=== PATIENT | male | born 1940 | race Caucasian/White ===

== ENCOUNTER 2016-12-26 09:26 | Inpatient (IN) | payer MEDICARE, OTHER ==
[~2016-12-26] VITALS: Ht 172.7 cm; Wt 94.4 kg
[~2016-12-26 09:26] MED LIST changes: -BACL10TA PO; -GETGO ROLLING W1 MI1; -HYDR-3583 PO; -PERC10TA27 PO
[2016-12-30] MEDS ORDERED: INSULIN HUMAN REGULAR 1,000 UNITS/10 ML VIAL SQ PRN (06:00)
[2016-12-30] MEDS ORDERED: SODIUM CHLORID 0.9% 500 ML IV SCH (06:00)
[2016-12-30] MEDS ORDERED: LACTATED RINGER'S 1000 ML IV SCH (06:00)
[2016-12-30] MEDS ORDERED: SODIUM CHLOR 0.9% 1000 ML INJ 1,000 ML IV SCH (06:00)
[2016-12-30] MEDS ORDERED: VANCOMYCIN HCL 1000 MG ON-CALL/NS 250 ML IV SCH ×2 (06:00)
[2016-12-30] MEDS ORDERED: METOPROLOL TARTRATE 25 MG TAB PO PRN (06:00)
[2016-12-30 06:19] VITALS: BP 168/107; PULSE 84; RESP 20; TEMP 98.1; O2SAT 94
[2016-12-30] MEDS ORDERED: THROMBIN (TOPICAL) 5,000 UNIT VIAL ONE (07:53)
[2016-12-30] MEDS ORDERED: BUPIVACAINE/EPINEPHRINE 0.5% PF 30 ML VIAL ONE (07:53)
[2016-12-30] MEDS ORDERED: VANCOMYCIN HCL 1000 MG VIAL ONE ×2 (07:53→10:56)
[2016-12-30] MEDS ORDERED: GELFOAM SIZE 100 ONE (07:54)
[2016-12-30] MEDS ORDERED: MIDAZOLAM HCL 2 MG/2 ML VIAL ONE (07:59)
[2016-12-30] MEDS ORDERED: HYDROmorphone HCL PF 2 MG/ML VIAL ONE (07:59)
[2016-12-30] MEDS ORDERED: ACETAMINOPHEN 1000 MG/100 ML VIAL IV ONE (07:59)
[2016-12-30] MEDS ORDERED: SODIUM CHLORIDE 0.9% FLUSH 5 ML FLUSH IVF PRN (11:45)
[2016-12-30] MEDS ORDERED: ZOLPIDEM TARTRATE 5 MG TAB PO PRN (11:45)
[2016-12-30] MEDS ORDERED: MAGNESIUM SULFATE INJ 2 GM in SODIUM CHLORIDE 0.9% INJ 100 ML IV PRN (11:45)
[2016-12-30] MEDS ORDERED: CYCLOBENZAPRINE HCL 10 MG TAB PO PRN (11:45)
[2016-12-30] MEDS ORDERED: ONDANSETRON HCL 4 MG/2 ML VIAL IV PRN (11:45)
[2016-12-30] MEDS ORDERED: POTASSIUM CHLOR 20 MEQ PREMIX 100 ML IV PRN (11:45)
[2016-12-30] MEDS ORDERED: DEXTROSE 50% IN WATER 50 ML VIAL(D50) IV PUSH PRN (11:45)
[2016-12-30] MEDS ORDERED: ACETAMINOPHEN 325 MG TAB PO PRN (11:45)
[2016-12-30] MEDS ORDERED: BISACODYL 10 MG SUPP PR PRN (11:45)
[2016-12-30] MEDS ORDERED: diphenhydrAMINE HCL 50 MG/ML VIAL IV PRN (11:45)
[2016-12-30] MEDS ORDERED: ACETAMINOPHEN/HYDROcodone 325 MG/10 MG TAB PO PRN (11:45)
[2016-12-30] MEDS ORDERED: ALUMINUM/MAGNESIUM/SIMETH 30 ML CUP PO PRN (11:45)
[2016-12-30] MEDS ORDERED: cloNIDine HCL 0.1 MG TAB PO PRN (11:45)
[2016-12-30] MEDS ORDERED: RESP: ALBUTEROL 2.5 MG/3 ML NEB (PRN) NEB (11:45)
[2016-12-30] MEDS ORDERED: CALCIUM GLUCONATE INJ 1 GM in SODIUM CHLORIDE 0.9% INJ 100 ML IV PRN (11:45)
[2016-12-30] MEDS ORDERED: GLUCAGON 1 MG/ML VIAL OTHER PRN (11:45)
[2016-12-30] MEDS ORDERED: PROMETHAZINE INJ 25 MG/ML VIAL IM PRN (11:45)
[2016-12-30] MEDS ORDERED: NALOXONE HCL 0.4 MG/ML AMP IV PRN (11:45)
[2016-12-30] MEDS ORDERED: fentaNYL CITRATE 250 MCG/5 ML AMP ONE (11:52)
--- NOTE | 2016-12-30 11:54 | PD.OP ---
Augustine Muller M.D. Operative Report Date of Surgery: Dec 30, 2016 Preoperative Diagnosis: Intractable low back pain with right L3 radiculopathy; lumbar L3-4 severe degenerative disc disease with facet hypertrophy associated right foraminal and lateral recess stenosis Postoperative Diagnosis: Same Procedure: Lumbar L3-4 transforaminal decompression with interbody fusion; L3-4 pedicle screw fixation; L3-4 interbody cage placement; microsurgical technique Anesthesia: Gen. endotracheal by Carlo Basilio Surgeon: Adarsh Prajapati M.D. Meter Record Clerk(s): Marija Woods Operation and Findings: Following initiation of general endotracheal anesthesia, the patient had a Muller catheter placed along with sequential compression devices. A gram of vancomycin was administered intravenously and he was turned in a prone position on a Giancarlo frame, on a Caden table, and all pressure points adequately padded. The lumbosacral region was then prepped with Chloraprep and sterilely draped with Ioban along the usual sterile draping. A right paraspinal skin incision was then made extending from the L3-4 level after infiltrating the skin with 0.5% Marcaine with epinephrine solution extending down through the fascia. The muscle fibers were split using avascular fatty plane and detached from the underlying facets, transverse process and lateral portion of lamina on the right side and a self-retaining retractor used for exposure. Intraoperative fluoroscopy was also used for level of confirmation along with microscope magnification for further dissection. There was significant facet and ligamentum flavum hypertrophy noted at the L3-4 levels. Right L3-4 facet was resected with a drill bit along with the lamina and there was severe foraminal and lateral recess stenosis from hypertrophied ligamentum flavum and facet which were decompressed. There was disc height collapse along with disc protrusion also leading to the foraminal stenosis. Epidural hemostasis was achieved with bipolar cautery and Gelfoam with thrombin. Subsequently entered into the disc space at the L4-5 level with a #15 blade and rex were used for discectomy. I then placed PEEK cage packed with local autograft bone and more local autograft bone was packed adjacent to the cage in interspace for added interbody fusion. With placement of the cage, I was able to distract the interspace and opened up the foramen further bilaterally. Subsequently in order to facilitate the fusion and provide stabilization, pedicle screw fixation was undertaken using Converse spine screws on entry point at the right L3-4 levels at the junction of the transverse process and facet. Subsequently using AP and lateral fluoroscopy tap and screw placement. The screws were then connected with a joe and locked in place with caps. The construct appeared very secure at this point. The area was then copiously irrigated with Vancomycin solution and powder. The retractors were removed and the bipolar cautery used for hemostasis. The muscle fascia was then approximated using 2-0 Vicryl interrupted stitches and then 3-0 Vicryl subcuticular stitches also placed in interrupted fashion. The final skin closure was completed with Mastisol and Steri-Strips. A sterile dressing was then applied. The patient then turned in supine position, extubated and taken to recovery room. There were no intraoperative complications. All sponge and needle counts were correct at the end of procedure. Estimated blood loss about 100 ml. Adarsh Prajapati MD Dec 30, 2016 11:54
--- NOTE | 2016-12-30 11:56 | RADRPT ---
EXAM DATE/TIME: 12/30/2016 08:17 [facility] COMPARISON: No previous studies available for comparison. INDICATIONS : L3-L4 posterior lumbar fusion. Level localization. MEDICAL HISTORY : None. SURGICAL HISTORY : None. ENCOUNTER: Initial ACUITY: 1 day PAIN SCORE: Non-responsive. LOCATION: Lumbar spine. CONCLUSION: Lateral view of the lower lumbar spine demonstrates temporary probe along the posterior elements at L 3. Ritesh Trivedi MD on December 30, 2016 at 11:55 Board Certified Radiologist. This report was verified electronically.
--- NOTE | 2016-12-30 11:56 | RADRPT ---
EXAM DATE/TIME: 12/30/2016 08:17 [facility] COMPARISON: No previous studies available for comparison. INDICATIONS : Post-op L3-L4 posterior lumbar fusion. MEDICAL HISTORY : None. SURGICAL HISTORY : None. ENCOUNTER: Initial ACUITY: 1 day PAIN SCORE: Non-responsive. LOCATION: Lumbar spine. CONCLUSION: Lateral fluoroscopic images during placement of posterior fusion screws/rods on the right at L3-4. In tervertebral disc device also seen. Ritesh Trivedi MD on December 30, 2016 at 11:54 Board Certified Radiologist. This report was verified electronically.
[2016-12-30] MEDS ORDERED: MORPHINE SULFATE 30 MG/30 ML PCA ONE (12:10)
[2016-12-30] MEDS ORDERED: MORPHINE SULFATE 30 MG/30 ML PCA IV SCH (12:15)
[2016-12-30] MEDS: NS + KCL 20 MEQ INJ 1,000 ML IV SCH ×2 (12:23→21:10)
[2016-12-30 12:26] LABS: AUTOMATED NEUTROPHIL # 4.8 TH/MM3 (1.8-7.7); BASOPHIL % 0.3 % (0.0-2.0); EOSINOPHIL % 0.6 % (0.0-4.0); HEMATOCRIT 38.6 % (39.0-51.0); HEMO FLAGS DIFF FINAL; LYMPH % 26.2 % (9.0-44.0); MEAN CELL VOLUME 96.1 FL (80.0-100.0); MEAN CORPUSCULAR HEMOGLOBIN 31.7 PG (27.0-34.0); MONO % 10.2 % (0.0-8.0); NEUT % 62.7 % (16.0-70.0); PLATELET COUNT 156 TH/MM3 (150-450); RED BLOOD COUNT 4.02 MIL/MM3 (4.50-5.90); RED CELL DISTRIBUTION WIDTH 13.6 % (11.6-17.2); WHITE BLOOD COUNT 7.6 TH/MM3 (4.0-11.0)
[2016-12-30] MEDS ORDERED: DO NOT ADM ANY ANTICOAGULANT DRUGS XX PRN (12:30)
[2016-12-30 12:34] LABS: BICARBONATE 26.4 MEQ/L (21.0-32.0); POTASSIUM 4.4 MEQ/L (3.5-5.1)
[2016-12-30] MEDS ORDERED: ePHEDrine/NS 25 MG/5 ML SYR IV ONE (13:28)
[2016-12-30] MEDS ORDERED: NEOSTIGMINE 3 MG/3 ML SYR IV ONE (13:28)
[2016-12-30] MEDS ORDERED: ONDANSETRON HCL 4 MG/2 ML VIAL IV PUSH ONE (13:28)
[2016-12-30] MEDS ORDERED: PROPOFOL 200 MG/20 ML AMP IV ONE (13:28)
[2016-12-30] MEDS ORDERED: LACTATED RINGER'S 1000 ML INJ 1,000 ML IV ONE (13:28)
[2016-12-30] MEDS ORDERED: PHENYLEPH/NS 1000 MCG/10 ML SYR IV ONE (13:28)
[2016-12-30 13:45] VITALS: BP 110/67; PULSE 89; RESP 18; TEMP 97; O2SAT 93
[2016-12-30] MEDS: PCA - TOTAL MG MORPHINE DELIVERED PER SHIFT SCH ×2 (14:00→22:00)
[2016-12-30] MEDS: GABAPENTIN 400 MG CAP PO SCH ×2 (14:09→17:50)
[2016-12-30] MEDS: MENTHOL LOZENGE SUCK-ON PRN ×2 (14:12→16:10)
[2016-12-30 16:00] VITALS: BP 133/77; PULSE 78; RESP 18; TEMP 97.5; O2SAT 95
[2016-12-30] MEDS: INSULIN NovoLIN REGULAR SUPPLEMENTAL SCALE SQ SCH ×2 (16:10→21:09)
[2016-12-30] MEDS: ACETAMINOPHEN/HYDROcodone 325 MG/10 MG TAB PO PRN (19:52)
[2016-12-30 20:00] VITALS: BP 130/73; PULSE 93; RESP 16; TEMP 99; O2SAT 93
[2016-12-30] MEDS: SODIUM CHLORIDE 0.9% FLUSH 5 ML FLUSH IVF SCH (21:00)
[2016-12-30] MEDS: DOCUSATE SODIUM 100 MG CAP PO SCH (21:08)
[2016-12-30] MEDS: AMITRIPTYLINE HCL 25 MG TAB PO SCH (21:09)
[2016-12-30] MEDS: TAMSULOSIN HCL 0.4 MG CAP PO SCH (21:09)
[2016-12-30] MEDS: ATORVASTATIN 10 MG TAB PO SCH (21:09)
[2016-12-31] VITALS: BP 119/70; PULSE 86; RESP 17; TEMP 99.4; O2SAT 93
[2016-12-31 04:00] VITALS: BP 146/80; PULSE 96; RESP 16; TEMP 100.2; O2SAT 93
[2016-12-31] MEDS: PCA - TOTAL MG MORPHINE DELIVERED PER SHIFT SCH ×2 (06:00→13:31)
[2016-12-31] MEDS: MAGNESIUM HYDROXIDE SUSP 30 ML CUP PO PRN (06:06)
[2016-12-31] MEDS: INSULIN NovoLIN REGULAR SUPPLEMENTAL SCALE SQ SCH ×4 (06:07→21:15)
[2016-12-31] MEDS: MULTIVITAMIN HEMATINIC THERAPEUTIC TAB PO SCH (07:59)
[2016-12-31 08:00] VITALS: BP 138/65; PULSE 90; RESP 18; TEMP 99; O2SAT 91
[2016-12-31] MEDS: ASPIRIN EC 81 MG TABEC PO SCH (08:00)
[2016-12-31] MEDS: CHOLECALCIFEROL (VIT D3) 1000 UNIT TAB PO SCH (08:00)
[2016-12-31] MEDS: GABAPENTIN 400 MG CAP PO SCH ×3 (08:00→18:26)
[2016-12-31] MEDS: LISINOPRIL 5 MG TAB PO SCH (08:00)
[2016-12-31] MEDS: PANTOPRAZOLE SOD 20 MG DELAYED RELEASE TAB PO SCH (08:01)
[2016-12-31] MEDS: SODIUM CHLORIDE 0.9% FLUSH 5 ML FLUSH IVF SCH ×2 (08:01→21:14)
[2016-12-31] MEDS: DOCUSATE SODIUM 100 MG CAP PO SCH ×2 (08:01→21:14)
[2016-12-31] MEDS: NS + KCL 20 MEQ INJ 1,000 ML IV SCH (08:06)
[2016-12-31] MEDS: MAGNESIUM OXIDE 400 MG TAB PO SCH (09:05)
--- NOTE | 2016-12-31 10:00 | HHI.NSPN ---
(Ritesh Orta) History Chief Complaint: Incisional back pain. (Ritesh Orta) Interval History 12/31/16: Pt underwent a L3/L4 TLIF with cage and pedicle screw fixation on 12/30. Complains of incisional back pain, controlled on DERMATOPATHOLOGIST. No radiculopathy or paresthesias in LEs. Muller removed this morning, no urination yet. (Ritesh Orta) Review of Systems General: Negative for: fever, chills, insomnia Respiratory: Positive for: cough, sputum (yellow sputum production clearing it. ), Negative for: shortness of breath Cardiovascular: Negative for: chest pain Gastrointestinal: Negative for: nausea, vomitting, diarrhea, constipation ( Ritesh Orta) Exam Results Vital Signs Date Time Temp Pulse Resp B/P Pulse Ox O2 Delivery O2 Flow Rate FiO2 12/31/16 08:00 99.0 90 18 138/65 91 12/30/16 18:41 2.00 12/30/16 13:15 Nasal Cannula Intake and Output 12/30/16 12/30/16 12/30/16 07:59 15:59 23:59 Intake Total 1712 ml 1163 ml Output Total 850 ml 750 ml Balance 862 ml 413 ml (Ritesh Orta) Physical Examination Resp: CTA bilaterally Heart: NSR no murmurs Abd: Soft positive bs Skin: No cyanosis or erythema. RN changed bandage this morning incision clean and dry. New bandage placed. Muscle: Moves LEs with good strength Neuro: Pt awake and alert. Sitting up in chair. Mild confusion. Follows commands well. (Ritesh Orta) Lab, Micro, Other Results Laboratory Tests Test 12/30/16 11:53 White Blood Count 7.6 TH/MM3 Red Blood Count 4.02 MIL/MM3 Hemoglobin 12.7 GM/DL Hematocrit 38.6 % Mean Corpuscular Volume 96.1 FL Mean Corpuscular Hemoglobin 31.7 PG Mean Corpuscular Hemoglobin 33.0 % Concent Red Cell Distribution Width 13.6 % Platelet Count 156 TH/MM3 Mean Platelet Volume 9.1 FL Neutrophils (%) (Auto) 62.7 % Lymphocytes (%) (Auto) 26.2 % Monocytes (%) (Auto) 10.2 % Eosinophils (%) (Auto) 0.6 % Basophils (%) (Auto) 0.3 % Neutrophils # (Auto) 4.8 TH/MM3 Lymphocytes # (Auto) 2.0 TH/MM3 Monocytes # (Auto) 0.8 TH/MM3 Eosinophils # (Auto) 0.0 TH/MM3 Basophils # (Auto) 0.0 TH/MM3 CBC Comment DIFF FINAL Differential Comment Sodium Level 139 MEQ/L Potassium Level 4.4 MEQ/L Chloride Level 105 MEQ/L Carbon Dioxide Level 26.4 MEQ/L Anion Gap 8 MEQ/L Blood Urea Nitrogen 16 MG/DL Creatinine 1.25 MG/DL Estimat Glomerular Filtration 56 ML/MIN Rate Random Glucose 191 MG/DL Calcium Level 8.0 MG/DL 12/30/16 12/30/16 12/31/16 14:59 22:59 06:59 Intake Total 1712 ml 1163 ml 1098 ml Output Total 850 ml 750 ml 650 ml Balance 862 ml 413 ml 448 ml Intake Oral 240 ml 240 ml 360 ml IV Total 272 ml 923 ml 738 ml Other 1200 ml Output Urine Total 800 ml 750 ml 650 ml Estimated Blood Loss 50 ml # Bowel Movements 0 0 0 (Ritesh Orta) Medical Decision Making Impression and Plan A: 76 y/o M s/p L3/L4 TLIF with cage and pedicle screw fixation P: Continue with pain control. Continue with PT St. Cath if not urinating in 6 hours from Muller removal. (Ritesh Orta ) Attending Statement The exam, history, and the medical decision-making described in the above note were completed with the assistance of the mid-level provider. I reviewed and agree with the findings presented. I attest that I had a [id number] encounter with the patient on the same day, and personally performed and documented my assessment and findings in the medical record. Nurse relates that he falls asleep easily and then oxygen sats drop to 89-90% on 2 L nasal cannula. He is a former smoker. We will discontinue morphine DERMATOPATHOLOGIST. Encourage incentive spirometry and also a respiratory treatment. Consult medical team for assistance in his medical management. Discussed with . (Adarsh Prajapati MD) Ritesh Orta Dec 31, 2016 10:00 Adarsh Prajapati MD Dec 31, 2016 17:32
[2016-12-31 12:00] VITALS: BP 140/78; PULSE 93; RESP 18; TEMP 99.8; O2SAT 91
[2016-12-31] MEDS ORDERED: guaiFENesin/DEXTROMETHORPHAN 200 MG/20 MG/10 ML CUP PO PRN (13:45)
[2016-12-31 16:00] VITALS: BP 148/74; PULSE 96; RESP 18; TEMP 100.9; O2SAT 90
[2016-12-31] MEDS ORDERED: RESP: IPRATROPIUM 0.5 MG/2.5 ML NEB NEB ONE (17:30)
--- NOTE | 2016-12-31 18:09 | RADRPT ---
EXAM DATE/TIME: 12/31/2016 17:51 [facility] COMPARISON: CHEST PA & LAT, December 26, 2016, 10:39. INDICATIONS : Evaluate for atelectasis. MEDICAL HISTORY : None. SURGICAL HISTORY : None. ENCOUNTER: Initial ACUITY: 4 - 6 days PAIN SCORE: 0/10 LOCATION: chest FINDINGS: There is bibasilar atelectasis, left worse than right. Both sides are worse than on the 17th. Small, bilateral pleural effusions are likely as well. No pneumothorax. Heart size stable, upper limits of normal. CONCLUSION: Left greater than right basilar atelectasis and small effusions. Levi Stern MD on December 31, 2016 at 18:07 Board Certified Radiologist. This report was verified electronically.
--- NOTE | 2016-12-31 18:48 | PD.CONS ---
HPI Service [facility] Consult Requested By Neurosurgery Reason for Consult Medical management Primary Care Physician Non-Staff Diagnoses: History of Present Illness 76-year-old male with a history of diabetes type 2, hypertension, chronic back pain with lumbar symptoms low despite medical management continue to have severe low back pain associated with lower extremity radiculopathy underwent L3/L4 TLIF with cage and pedicle screw fixation on 12/30/16.[facility] was consulted today secondary to shortness of breath with hypoxia however patient denies any chest pain. Chest x-ray obtained today reveals Left greater than right basilar atelectasis and small effusions. Patient denies any cough, GI bleed. Review of Systems Other 12 systems reviewed and are negative except for the one mentioned in history of present illness Past Family Social History Allergies: Coded Allergies: Iodine (Verified Allergy, Severe, Hives, 12/30/16) Venlafaxine (Verified Allergy, Unknown, 12/30/16) pt states he cant tolerate Tramadol (Verified Adverse Reaction, Unknown, 12/30/16) pt states he cant tolerate Past Medical History Diabetes type 2 Hypertension Hyperlipidemia Chronic low back pain Past Surgical History L3/L4 TLIF with cage and pedicle screw fixation on 12/30/16 Previous neck surgery Reported Medications See EMR Family History Father at age 42 of unknown cancer Mother from complication of brain cancer Social History Patient denies tobacco, alcohol or easy drug intake Physical Exam Vital Signs Vital Signs Date Time Temp Pulse Resp B/P Pulse Ox O2 Delivery O2 Flow Rate FiO2 12/31/16 17:40 92 Nasal Cannula 4.00 12/31/16 16:00 100.9 96 18 148/74 90 12/31/16 13:31 18 12/31/16 12:00 99.8 93 18 140/78 91 12/31/16 08:00 99.0 90 18 138/65 91 12/31/16 04:00 100.2 96 16 146/80 93 12/31/16 00:00 99.4 86 17 119/70 93 12/30/16 20:00 99.0 93 16 130/73 93 Physical Exam GENERAL: This is a well-nourished, well-developed patient, in no apparent distress. SKIN: No rashes, ecchymoses or lesions. Cool and dry. HEAD: Atraumatic. Normocephalic. No temporal or scalp tenderness. EYES: Pupils equal round and reactive. Extraocular motions intact. No scleral icterus. No injection or drainage. ENT: Nose without bleeding, purulent drainage or septal hematoma. Throat without erythema, tonsillar hypertrophy or exudate. Uvula midline. Airway patent. NECK: Trachea midline. No JVD or lymphadenopathy. Supple, nontender, no meningeal signs. CARDIOVASCULAR: Regular rate and rhythm without murmurs, gallops, or rubs. RESPIRATORY: Clear to auscultation. Breath sounds equal bilaterally. No wheezes , rales, or rhonchi. GASTROINTESTINAL: Abdomen soft, non-tender, nondistended. No hepato-splenomegaly , or palpable masses. No guarding. MUSCULOSKELETAL: Extremities without clubbing, cyanosis, or edema. No joint tenderness, effusion, or edema noted. No calf tenderness. Negative Homans sign bilaterally. NEUROLOGICAL: Awake and alert. Cranial nerves II through XII intact. Motor and sensory grossly within normal limits. Five out of 5 muscle strength in all muscle groups. Normal speech. Result Diagram: 12/30/16 1153 12/30/16 1153 Imaging Last Impressions Chest X-Ray 12/31/16 0000 Signed Impressions: Service Date/Time: Saturday, December 31, 2016 17:51 - CONCLUSION: Left greater than right basilar atelectasis and small effusions. Levi Stern MD Lumbar Spine X-Ray 12/30/16 0000 Signed Impressions: Service Date/Time: Friday, December 30, 2016 08:17 - CONCLUSION: Lateral fluoroscopic images during placement of posterior fusion screws/rods on the right at L3-4. Intervertebral disc device also seen. Ritesh Trivedi MD Assessment and Plan Assessment and Plan 76-year-old male with 1-Lumbar radiculopathy: Status post L3/L4 TLIF with cage and pedicle screw fixation on 12/30/16. Management per neurosurgery. Continue with PT, judicious use of narcotics secondary to hypoxia 2-Respiratory failure with hypoxia: Chest x-ray noted and review, patient advised on incentive spirometry use. Consider CTA to r/o PE if no improvement. DuoNeb when necessary and continue with oxygen to maintain saturation above 92%. 3-Diabetes type 2: Hold been metformin, continue with insulin sliding scale 4-Hyperlipidemia: Continue with Lipitor 5-Hypertension: On lisinopril 6-DVT prophylaxis: Bilateral SCDs 7-Other chronic medical conditions: Continue outpatient medications Thank you for this consultation Code Status Full code Discussed Condition With Patient Ritesh Lucero MD Dec 31, 2016 18:48
[2016-12-31] MEDS ORDERED: RESP: ALBUTEROL 2.5 MG/IPRATROPIUM 0.5 MG NEB (PRN) NEB (19:00)
[2016-12-31 20:00] VITALS: BP 144/88; PULSE 101; RESP 18; TEMP 101; O2SAT 93
[2016-12-31] MEDS: ATORVASTATIN 10 MG TAB PO SCH (21:14)
[2016-12-31] MEDS: AMITRIPTYLINE HCL 25 MG TAB PO SCH (21:14)
[2016-12-31] MEDS: TAMSULOSIN HCL 0.4 MG CAP PO SCH (21:14)
[2017-01-01] VITALS: BP 102/67; PULSE 93; RESP 17; TEMP 97.7; O2SAT 93
[2017-01-01 04:00] VITALS: BP 131/81; PULSE 88; RESP 16; TEMP 97.4; O2SAT 93
[2017-01-01] MEDS: INSULIN NovoLIN REGULAR SUPPLEMENTAL SCALE SQ SCH ×4 (06:08→20:53)
[2017-01-01] MEDS: MAGNESIUM HYDROXIDE SUSP 30 ML CUP PO PRN ×2 (06:08→08:17)
[2017-01-01 08:04] VITALS: BP 139/82; PULSE 86; RESP 16; TEMP 98.2; O2SAT 93
[2017-01-01] MEDS: ACETAMINOPHEN/HYDROcodone 325 MG/10 MG TAB PO PRN ×2 (08:16→15:08)
[2017-01-01] MEDS: SODIUM CHLORIDE 0.9% FLUSH 5 ML FLUSH IVF SCH ×2 (08:16→20:55)
[2017-01-01] MEDS: CHOLECALCIFEROL (VIT D3) 1000 UNIT TAB PO SCH (08:16)
[2017-01-01] MEDS: GABAPENTIN 400 MG CAP PO SCH ×3 (08:17→15:56)
[2017-01-01] MEDS: PANTOPRAZOLE SOD 20 MG DELAYED RELEASE TAB PO SCH (08:17)
[2017-01-01] MEDS: ASPIRIN EC 81 MG TABEC PO SCH (08:17)
[2017-01-01] MEDS: LISINOPRIL 5 MG TAB PO SCH (08:17)
[2017-01-01] MEDS: DOCUSATE SODIUM 100 MG CAP PO SCH ×2 (08:17→20:54)
[2017-01-01] MEDS: MULTIVITAMIN HEMATINIC THERAPEUTIC TAB PO SCH (08:17)
[2017-01-01] MEDS: ENOXAPARIN SODIUM 40 MG/0.4 ML SYRINGE SQ SCH (09:16)
--- NOTE | 2017-01-01 10:31 | HHI.NSPN ---
(Ritesh Orta) History Chief Complaint: Incisional back pain. (Ritesh Orta) Interval History 12/31/16: Pt underwent a L3/L4 TLIF with cage and pedicle screw fixation on 12/30. Complains of incisional back pain, controlled on SCHOOL CLE[employer]ER. No radiculopathy or paresthesias in LEs. Muller removed this morning, no urination yet. 01/01/17: Pt awakens to voice. He states back pain improving. No radiculopathy or paresthesias. He has some difficulty transferring out of bed or chair secondary to discomfort. (Ritesh Orta) Review of Systems General: Negative for: fever, chills, insomnia Respiratory: Negative for: shortness of breath, cough, sputum Cardiovascular: Negative for: chest pain Gastrointestinal: Negative for: nausea, vomitting, diarrhea, constipation ( Ritesh Orta) Exam Results Vital Signs Date Time Temp Pulse Resp B/P Pulse Ox O2 Delivery O2 Flow Rate FiO2 01/01/17 08:20 93 Room Air 01/01/17 08:04 98.2 86 16 139/82 01/01/17 06:50 4.00 Intake and Output 12/31/16 12/31/16 01/01/17 08:00 16:00 00:00 Intake Total 1098 ml 1495 ml 240 ml Output Total 650 ml Balance 448 ml 1495 ml 240 ml (Ritesh Orta) Physical Examination Resp: CTA bilaterally Heart: NSR no murmurs Abd: Soft positive bs Skin: No cyanosis or erythema. RN changed bandage this morning incision clean and dry. New bandage placed. Muscle: Moves LEs with good strength Neuro: Pt awakens to voice. Speech clear and appropriate. Follows commands well. (Ritesh Orta) Lab, Micro, Other Results 12/31/16 12/31/16 01/01/17 15:00 23:00 07:00 Intake Total 1495 ml 240 ml 240 ml Output Total 250 ml Balance 1495 ml 240 ml -10 ml Intake Oral 720 ml 240 ml 240 ml IV Total 775 ml Output Urine Total 250 ml # Voids 1 1 1 # Bowel Movements 0 0 0 (Ritesh Orta) Medical Decision Making Impression and Plan A: 76 y/o M s/p L3/L4 TLIF with cage and pedicle screw fixation P: Continue with pain control. Continue with PT (Ritesh Orta) Attending Statement The exam, history, and the medical decision-making described in the above note were completed with the assistance of the mid-level provider. I reviewed and agree with the findings presented. I attest that I had a [id number] encounter with the patient on the same day, and personally performed and documented my assessment and findings in the medical record. He is much more alert today and denies any shortness of breath. Normal oxygen saturations on room air. Ambulated several times today. Anticipate discharge her tomorrow with home PT if stable overnight. Discussed with the and son at bedside. ( Adarsh Prajapati MD) Ritesh Orta Jan 01, 2017 10:31 Adarsh Prajapati MD Jan 01, 2017 19:04
[2017-01-01] MEDS: MAGNESIUM OXIDE 400 MG TAB PO SCH (11:00)
[2017-01-01 12:00] VITALS: BP 111/68; PULSE 84; RESP 18; TEMP 96.1; O2SAT 91
--- NOTE | 2017-01-01 12:56 | HHI.PR ---
Subjective Remarks Patient seen and examined Reports significant improvement or shortness of breath State he ambulated with assistance with PT Vitals stable Objective Vitals Vital Signs Date Time Temp Pulse Resp B/P Pulse Ox O2 Delivery O2 Flow Rate FiO2 01/01/17 12:04 91 Room Air 01/01/17 08:20 93 Room Air 01/01/17 08:04 98.2 86 16 139/82 93 01/01/17 06:50 Nasal Cannula 4.00 01/01/17 04:00 97.4 88 16 131/81 93 01/01/17 00:00 97.7 93 17 102/67 93 12/31/16 20:00 101.0 101 18 144/88 93 12/31/16 17:40 92 Nasal Cannula 4.00 12/31/16 16:00 100.9 96 18 148/74 90 12/31/16 13:31 18 I/O 12/31/16 12/31/16 12/31/16 01/01/17 01/01/17 01/01/17 07:00 15:00 23:00 07:00 15:00 23:00 Intake Total 1098 ml 1495 ml 240 ml 240 ml Output Total 650 ml 250 ml Balance 448 ml 1495 ml 240 ml -10 ml Intake Oral 360 ml 720 ml 240 ml 240 ml IV Total 738 ml 775 ml Output Urine Total 650 ml 250 ml # Voids 1 1 1 # Bowel Movements 0 0 0 0 Result Diagram: 12/30/16 1153 12/30/16 1153 Imaging Last Impressions Chest X-Ray 12/31/16 0000 Signed Impressions: Service Date/Time: Saturday, December 31, 2016 17:51 - CONCLUSION: Left greater than right basilar atelectasis and small effusions. Levi Stern MD Lumbar Spine X-Ray 12/30/16 0000 Signed Impressions: Service Date/Time: Friday, December 30, 2016 08:17 - CONCLUSION: Lateral fluoroscopic images during placement of posterior fusion screws/rods on the right at L3-4. Intervertebral disc device also seen. Ritesh Trivedi MD Objective Remarks GENERAL: NAD SKIN: Warm and dry. HEAD: Normocephalic. EYES: No scleral icterus. No injection or drainage. NECK: Supple, trachea midline. No JVD or lymphadenopathy. CARDIOVASCULAR: Regular rate and rhythm without murmurs, gallops, or rubs. RESPIRATORY: Breath sounds equal bilaterally. No accessory muscle use. GASTROINTESTINAL: Abdomen soft, non-tender, nondistended. MUSCULOSKELETAL: No cyanosis, or edema. BACK: Nontender without obvious deformity. No CVA tenderness. A/P Assessment and Plan 76-year-old male with 1-Lumbar radiculopathy: Status post L3/L4 TLIF with cage and pedicle screw fixation on 12/30/16. Management per neurosurgery. Continue with TLSO brace 2-Respiratory failure with hypoxia: Resolved. Chest x-ray noted and review, patient advised on incentive spirometry use. Consider CTA to r/o PE if no improvement. DuoNeb when necessary and continue with oxygen to maintain saturation above 92%. 3-Diabetes type 2: Resume metformin, continue with insulin sliding scale 4-Hyperlipidemia: Continue with Lipitor 5-Hypertension: On lisinopril 6-DVT prophylaxis: Bilateral SCDs 7-Other chronic medical conditions: Continue outpatient medications Discharge Planning Discharge per neurosurgery Ritesh Lucero MD Jan 01, 2017 12:56
[2017-01-01 16:00] VITALS: BP 127/71; PULSE 90; RESP 18; TEMP 98.6; O2SAT 92
[2017-01-01] MEDS: metFORMIN HCL 500 MG TAB PO SCH (16:37)
[2017-01-01 20:00] VITALS: BP 104/68; PULSE 92; RESP 17; TEMP 98.1; O2SAT 93
[2017-01-01] MEDS: AMITRIPTYLINE HCL 25 MG TAB PO SCH (20:54)
[2017-01-01] MEDS: TAMSULOSIN HCL 0.4 MG CAP PO SCH (20:54)
[2017-01-01] MEDS: ATORVASTATIN 10 MG TAB PO SCH (20:54)
[2017-01-02] VITALS: BP 137/77; PULSE 94; RESP 18; TEMP 97.7; O2SAT 93
[2017-01-02] MEDS: ACETAMINOPHEN/HYDROcodone 325 MG/10 MG TAB PO PRN ×3 (00:29→15:24)
[2017-01-02] MEDS: INSULIN NovoLIN REGULAR SUPPLEMENTAL SCALE SQ SCH ×2 (07:40→11:40)
[2017-01-02 08:00] VITALS: BP 150/88; PULSE 78; RESP 21; TEMP 96.5; O2SAT 94
[2017-01-02] MEDS: metFORMIN HCL 500 MG TAB PO SCH (09:08)
[2017-01-02] MEDS: PANTOPRAZOLE SOD 20 MG DELAYED RELEASE TAB PO SCH (09:08)
[2017-01-02] MEDS: CHOLECALCIFEROL (VIT D3) 1000 UNIT TAB PO SCH (09:08)
[2017-01-02] MEDS: DOCUSATE SODIUM 100 MG CAP PO SCH (09:08)
[2017-01-02] MEDS: GABAPENTIN 400 MG CAP PO SCH ×2 (09:09→11:41)
[2017-01-02] MEDS: ASPIRIN EC 81 MG TABEC PO SCH (09:09)
[2017-01-02] MEDS: MAGNESIUM HYDROXIDE SUSP 30 ML CUP PO PRN (09:09)
[2017-01-02] MEDS: SODIUM CHLORIDE 0.9% FLUSH 5 ML FLUSH IVF SCH (09:09)
[2017-01-02] MEDS: MULTIVITAMIN HEMATINIC THERAPEUTIC TAB PO SCH (09:09)
[2017-01-02] MEDS: LISINOPRIL 5 MG TAB PO SCH (09:09)
[2017-01-02] MEDS: ENOXAPARIN SODIUM 40 MG/0.4 ML SYRINGE SQ SCH (09:10)
--- NOTE | 2017-01-02 09:37 | HHI.PR ---
Subjective Remarks Patient seen and examined He was up and ambulated with PT No acute event overnight Objective Vitals Vital Signs Date Time Temp Pulse Resp B/P Pulse Ox O2 Delivery O2 Flow Rate FiO2 01/02/17 09:18 Room Air 01/02/17 00:00 97.7 94 18 137/77 93 01/01/17 20:00 98.1 92 17 104/68 93 01/01/17 16:00 98.6 90 18 127/71 92 01/01/17 15:59 92 Room Air 01/01/17 12:04 91 Room Air 01/01/17 12:00 96.1 84 18 111/68 91 I/O 01/01/17 01/01/17 01/01/17 01/02/17 01/02/17 01/02/17 07:00 15:00 23:00 07:00 15:00 23:00 Intake Total 240 ml 600 ml 480 ml 240 ml Output Total 250 ml Balance -10 ml 600 ml 480 ml 240 ml Intake Oral 240 ml 600 ml 480 ml 240 ml Output Urine Total 250 ml # Voids 1 3 3 1 # Bowel Movements 0 0 0 0 Result Diagram: 12/30/16 1153 12/30/16 1153 Objective Remarks GENERAL: NAD and walking in hallway with PT SKIN: Warm and dry. HEAD: Normocephalic. EYES: No scleral icterus. No injection or drainage. NECK: Supple, trachea midline. No JVD or lymphadenopathy. CARDIOVASCULAR: Regular rate and rhythm without murmurs, gallops, or rubs. RESPIRATORY: Breath sounds equal bilaterally. No accessory muscle use. GASTROINTESTINAL: Abdomen soft, non-tender, nondistended. MUSCULOSKELETAL: No cyanosis, or edema. BACK: Nontender without obvious deformity. No CVA tenderness. A/P Assessment and Plan 76-year-old male with 1-Lumbar radiculopathy: Status post L3/L4 TLIF with cage and pedicle screw fixation on 12/30/16. Management per neurosurgery. Continue with TLSO brace 2-Respiratory failure with hypoxia: Resolved. Chest x-ray noted and review, patient advised on incentive spirometry use. DuoNeb when necessary and continue with oxygen to maintain saturation above 92%. 3-Diabetes type 2: continue metformin, continue with insulin sliding scale 4-Hyperlipidemia: Continue with Lipitor 5-Hypertension: On lisinopril 6-DVT prophylaxis: Bilateral SCDs 7-Other chronic medical conditions: Continue outpatient medications [facility] with sign off Discharge Planning Discharge per neurosurgery Ritesh Lucero MD Jan 02, 2017 09:37
[2017-01-02] MEDS ORDERED: GETGO ROLLING W1 MI1 (09:53)
[2017-01-02] MEDS ORDERED: HYDR-3583 PO (09:53)
--- NOTE | 2017-01-02 09:55 | HHI.FF ---
Face to Face Verification Diagnosis: (1) Low back pain (2) Postlaminectomy syndrome, lumbar (3) Facet arthropathy, lumbar (4) Lumbar degenerative disc disease (5) Scoliosis of lumbar spine (6) Lumbar foraminal stenosis Physical Therapy Order: Evaluate and Treat, Improve ambulation, Strength and gait training Home Health Nursing Order: Wound care and dressing changes Nursing assessment with vital signs I have seen patient Star Slater on 01/02/17. My clinical findings support the need for the requested home health care services because: Deconditioned w/ increased weakness Impaired cognition/judgement High risk of falls I certify that my clinical findings support that this patient is homebound because: Post-op weakness Unsteady gait/balance Unable to use public transportation Ritesh Orta Jan 02, 2017 09:54
[2017-01-02] MEDS: MAGNESIUM OXIDE 400 MG TAB PO SCH (10:01)
[2017-02-11] MEDS ORDERED: PERC10TA27 PO (14:36)
[2017-02-11] MEDS ORDERED: BACL10TA PO (14:36)
--- NOTE | 2017-02-27 15:45 | HHI.DS ---
Discharge Summary Admission Date Dec 30, 2016 at 05:22 Discharge Date: Jan 02, 2017 Admitting Diagnosis (1) Low back pain Diagnosis: Principal ICD Code: M54.5 (2) Postlaminectomy syndrome, lumbar Diagnosis: Principal ICD Code: M96.1 (3) Facet arthropathy, lumbar Diagnosis: Principal ICD Code: M12.88 (4) Lumbar degenerative disc disease Diagnosis: Principal ICD Code: M51.36 (5) Scoliosis of lumbar spine Diagnosis: Principal ICD Code: M41.9 (6) Lumbar foraminal stenosis Diagnosis: Principal ICD Code: M99.83 Procedures Lumbar L3/L4 transforaminal decompression with interbody fusion; L3/L4 interbody cage and pedicle screw fixation by Dr. Prajapati on 12/30/16. Brief History Pt presents for an evaluation of low back and leg pain. He states he has had bilateral anterior thigh pain for the last 1-2 years initially. He states in the last 3-4 weeks the pain in the back has gotten much worse and is now extending into the right lateral thigh. He has been to pain management and had 4 injections in the last 6 months. He states driving a distance and walking are difficult and exacerbate his pain. He states his pain doesn't extend past his knees but he also has diabetic neuropathy in his feet that extends up his legs. He was recently started on Amitriptyline which has helped his neuropathy pain. He has fallen but attributes this to tripping not gross weakness. he has been using a cane for a year. He has been to PT 1-2 years ago which didn't help much. he was last seen in January 2014 and at that time I recommended continued conservative management. Imaging MRI of the lumbar spine from November 19, 2016 was reviewed with the patient. he has post laminectomy defects at L3/L4 and L4/L5 with associated scoliotic curvature centered at the L3 level. He has advanced L3/L4 degenerative disc disease with disc height collapse along with facet arthropathy and right lateral recess and foraminal stenosis. He also has L1/L2 disc osteophyte complex eccentric to the left side. Grade I T12/L1 retrolisthesis is noted. Hospital Course Pt underwent the above noted procedure performed by Dr. Prajapati. Postoperatively pt was admitted to the med/surg floor. PT was consulted. Hospitalist was consulted for assistance with medical management. His activity was increased and he was discharged home. Pt Condition on Discharge: Stable Discharge Disposition: Disch w/ Home Health Serv Discharge Instructions DIET: Follow Instructions for: As Tolerated, No Restrictions ACTIVITIES You can perform: Shower Only-No Bath Activities to Avoid: Lifting/Bending, Prolonged Standing, Strenuous Activity, Bathing, Driving ADDITIONAL Activity Instructio: lumbar brace on when sitting, standing, or walking. Follow up Referrals: SNF/[facility]HH with [facility] New Medications: Walker Rolling/GetGo (Walker Rolling/GetGo) 1 Mis Mis 1 EA .ROUTE DIRECTED #1 EA Hydrocodone-Acetaminophen (Hydrocodone-Acetaminophen) 10-325 mg Tab 1 TAB PO Q4H PRN PAIN SCALE 1 TO 5 #60 TAB Continued Medications: Amitriptyline (Amitriptyline) 25 Mg Tab 25 MG PO HS TAB Aspirin (Aspirin) 81 Mg Tabdr 81 MG PO DAILY TAB Atorvastatin (Atorvastatin) 10 Mg Tab 10 MG PO HS Cholesterol Management #30 Ref 0 TAB Cholecalciferol (Vitamin D-3) 2,000 Unit Tab 2000 UNITS PO DAILY Gabapentin (Gabapentin) 800 Mg Tab 800 MG PO TID #90 Ref 0 TAB Lisinopril (Lisinopril) 5 Mg Tab 5 MG PO DAILY Blood Pressure Management #30 Ref 0 TAB Magnesium (Magnesium) 500 Mg Tab 500 MG PO DAILY Nutritional Supplement Ref 0 TAB Metformin (Metformin) 1,000 Mg Tab 1000 MG PO BIDPC With meals Blood Sugar Management #60 Ref 0 TAB Multiple Vitamins W/ Minerals (Multi For Him 50+) 1 Tab Tab 1 TAB PO DAILY Omeprazole (Omeprazole) 20 Mg Tab 20 MG PO DAILY #30 Ref 0 TAB Tamsulosin (Tamsulosin) 0.4 Mg Cap 0.8 MG PO HS Manage Prostate Problems #60 Ref 0 CAP Discontinued Medications: Hydrocodone-Acetaminophen (Hydrocodone-Acetaminophen) 7.5-325 mg Tab 1 TAB PO Q4H PRN PAIN Ref 0 TAB Ritesh Orta Feb 27, 2017 15:45
[2017-03-24] MEDS ORDERED: PERC10TA27 PO (16:15)
== END 2017-01-02 15:38 | disposition home health service (06) | DRG 459 ==
LOC: HSDI 12-30 05:22 → N06B 12-30 13:47
PROVIDERS: ADMIT Neurological Surgery; ATTEND Neurological Surgery
PROC: 0SB20ZZ Excision of Lumbar Vertebral Disc, Open Approach (ICD-10-PCS; 2016-12-30)
PROC: 0SG00AJ Fusion of Lumbar Vertebral Joint with Interbody Fusion Device, Posterior Approach, Anterior Column, Open Approach (ICD-10-PCS; principal; 2016-12-30 08:12)
DX: M51.16 Intervertebral disc disorders with radiculopathy, lumbar region (principal); J96.91 Respiratory failure, unspecified with hypoxia; J90 Pleural effusion, not elsewhere classified; J98.11 Atelectasis; J44.9 Chronic obstructive pulmonary disease, unspecified; E11.9 Type 2 diabetes mellitus without complications; I10 Essential (primary) hypertension; M48.06 Spinal stenosis, lumbar region; K21.9 Gastro-esophageal reflux disease without esophagitis; E78.5 Hyperlipidemia, unspecified; Z79.84 Long term (current) use of oral hypoglycemic drugs; Z87.891 Personal history of nicotine dependence; Z88.5 Allergy status to narcotic agent
CPT/HCPCS: 71010; 72020; 72100; 76000; 80048; 82948; 85025; 86850; 86900; 86901; 86920; 94150; 94640; C1713; J0131; J0690; J1170; J1650; J2250; J2270; J2370; J2405; J2710; J3010; J3370; J3480; J7050; J7120; J7644

== ENCOUNTER → 2016-12-26 | Outpatient (CLI) | payer MEDICARE, OTHER ==
[~2016-12-26] MED LIST: AMIT25TA9 PO; ASPI1TAB69 PO; ATOR10TA15 PO; BACL10TA PO; CHOL1TAB42 PO; GABA800T PO; GETGO ROLLING W1 MI1; HYDR-3580 PO; HYDR-3583 PO; LISI-519 PO; MAGN500T4 PO; METF1000 PO; MULTTAB23 PO; OMEP20TA PO; PERC10TA27 PO; TAMS0.4C4 PO
[2016-12-26 10:38] LABS: APTT (PATIENT) 25.7 SEC (24.3-30.1); INTERNATIONAL NORMALIZED RATIO 0.9 RATIO; PROTHROMBIN TIME - PATIENT 10.3 SEC (9.8-11.6)
[2016-12-26 10:41] LABS: AUTOMATED NEUTROPHIL # 4.9 TH/MM3 (1.8-7.7); BASOPHIL % 0.3 % (0.0-2.0); EOSINOPHIL # 0.1 TH/MM3 (0-0.4); EOSINOPHIL % 0.8 % (0.0-4.0); HEMATOCRIT 42.7 % (39.0-51.0); HEMO FLAGS DIFF FINAL; LYMPH % 33.2 % (9.0-44.0); LYMPHOCYTE # 2.8 TH/MM3 (1.0-4.8); MEAN CELL VOLUME 96.2 FL (80.0-100.0); MEAN CORPUSCULAR HEMOGLOBIN 31.9 PG (27.0-34.0); MEAN CORPUSCULAR HGB CONC 33.2 % (32.0-36.0); MONO % 6.9 % (0.0-8.0); NEUT % 58.8 % (16.0-70.0); PLATELET COUNT 169 TH/MM3 (150-450); RED BLOOD COUNT 4.44 MIL/MM3 (4.50-5.90); RED CELL DISTRIBUTION WIDTH 13.6 % (11.6-17.2); WHITE BLOOD COUNT 8.3 TH/MM3 (4.0-11.0)
--- NOTE | 2016-12-26 10:49 | RADRPT ---
EXAM DATE/TIME: 12/26/2016 10:39 [facility] COMPARISON: CHEST PA & LAT, December 20, 2012, 12:05. INDICATIONS : Evaluate for pneumonia, pneumothorax or communicable disease. Pre-op lumbar surgery 12/30/16. MEDICAL HISTORY : None. SURGICAL HISTORY : None. ENCOUNTER: Initial ACUITY: 1 day PAIN SCORE: 0/10 LOCATION: Bilateral chest FINDINGS: PA and lateral views of the chest demonstrate the lungs to be symmetrically aerated without evidence of mass, infiltrate or effusion. The cardiomediastinal contours are unremarkable. Osseous structure s are intact. CONCLUSION: No acute disease. Destin Ramsey MD FACR on December 26, 2016 at 10:47 Board Certified Radiologist. This report was verified electronically.
[2016-12-26 11:00] LABS: BLOOD, URINE NEG (NEG); GLUCOSE,URINE NEG (NEG); KETONE, URINE NEG (NEG); MUCUS URINE FEW /lpf (OCC); NITRITE,URINE NEG (NEG); SQUAMOUS EPITHELIAL CELL URINE <1 /hpf (0-5); URINE COLOR YELLOW (YELLW/STRAW)
[2016-12-26 11:10] LABS: COMMENT (UR) CULT NOT INDICATED; CULTURE IF INDICATED CULT NOT INDICATED
[2016-12-26 11:42] LABS: ALT (GPT) 51 U/L (12-78); ANION GAP 7 MEQ/L (5-15); AST (GOT) 34 U/L (15-37); BICARBONATE 28.2 MEQ/L (21.0-32.0); BLOOD UREA NITROGEN 23 MG/DL (7-18); CHLORIDE 106 MEQ/L (98-107); GLOMERULAR FILTRATION RATE 78 ML/MIN (>89); GLUCOSE,FASTING 164 MG/DL (74-99); POTASSIUM 4.5 MEQ/L (3.5-5.1); SODIUM (NA) 141 MEQ/L (136-145)
[2016-12-26 11:44] LABS: ALKALINE PHOSPHATASE 79 U/L (45-117); TOTAL BILIRUBIN ADULT 0.9 MG/DL (0.2-1.0)
--- NOTE | 2016-12-26 16:54 | EKG ---
Date Performed: 12/26/2016 Time Performed: 09:59:44 PTAGE: 76 years EKG: Sinus rhythm MARKED LEFT AXIS DEVIATION LOW QRS VOLTAGE IN PRECORDIAL LEADS MODERATE INTRAVENTRICULAR CONDUCTION DELAY MODERATE VOLTAGE CRITERIA FOR LVH, CONSIDER NORMAL VARIANT NONSPECIFIC T-WAVE ABNORMALITY ABNOR MAL ECG NO PREVIOUS TRACING Compared to previous tracing, voltage has increased. DOCTOR: Koby Mora Interpretating Date/Time 12/26/2016 16:52:11
== END ==
LOC: CPRE 09:15
PROVIDERS: ATTEND Neurological Surgery
DX: Z01.810 Encounter for preprocedural cardiovascular examination (principal); M12.88 Other specific arthropathies, not elsewhere classified, other specified site; M54.5 Low back pain; M51.36 Other intervertebral disc degeneration, lumbar region; M99.83 Other biomechanical lesions of lumbar region; M96.1 Postlaminectomy syndrome, not elsewhere classified; M41.9 Scoliosis, unspecified; R94.31 Abnormal electrocardiogram [ECG] [EKG]; Z01.818 Encounter for other preprocedural examination; Z01.812 Encounter for preprocedural laboratory examination; Z79.01 Long term (current) use of anticoagulants
CPT/HCPCS: 36415; 71020; 80053; 81001; 85025; 85610; 85730; 93005

== ENCOUNTER 2018-04-12 11:45 | Emergency (ER) | payer MEDICARE, OTHER ==
[~2018-04-12] VITALS: Ht 172.7 cm; Wt 92.0 kg
[~2018-04-12 11:45] MED LIST changes: +BACL10TA PO; +GETGO ROLLING W1 MI1; -HYDR-3580 PO; +HYDR-3583 PO; -OMEP20TA PO; +OMEP20TA93 PO; +PERC10TA27 PO
[2018-04-12 12:26] VITALS: BP 130/70; PULSE 70; RESP 18; TEMP 97.6; O2SAT 97
[2018-04-12] MEDS ORDERED: TAMS0.4C4 (14:58)
[2018-04-12] MEDS ORDERED: SM M250T PO (14:58)
[2018-04-12] MEDS ORDERED: GABA600T PO (14:58)
[2018-04-12] MEDS ORDERED: CLON0.5T PO (14:58)
[2018-04-12] MEDS ORDERED: FINA5TAB2 (14:58)
[2018-04-12] MEDS ORDERED: ASPI81CH6 CHEW (14:58)
[2018-04-12] MEDS ORDERED: HYDR-3580 PO (14:58)
[2018-04-12] MEDS ORDERED: AMIT10TA6 PO (14:58)
[2018-04-12 15:05] VITALS: BP 153/80; PULSE 68; RESP 17; O2SAT 97
[2018-04-12] MEDS ORDERED: SODIUM CHLORIDE 0.9% FLUSH 10 ML FLUSH IVF PRN (15:15)
--- NOTE | 2018-04-12 15:22 | PD ---
HPI Chief Complaint: Complaint Time Seen by Provider: 14:51 Travel History International Travel<30 days: No Contact w/Intl Traveler<30days: No Traveled to known affect area: No History of Present Illness HPI 78-year-old male with PMH of DM, bladder CA, HTN presents to the ED for evaluation of 1 week history of hematuria and dysuria. Patient states that he went to his urologist office, had a UA and was placed on an on an antibiotic. He endorses compliance with the medication and states that he had some clearing of the hematuria. However today he had james hematuria again. He denies fever , chills, nausea, vomiting, abdominal pain, back pain, testicular pain. He states that he last had a cystoscopy in October that was negative. Takes a baby aspirin daily. Denies other blood thinners. He is followed by Dr. Lugo, urology. [facility] Past Medical History Arthritis: Yes Cancer: Yes (BLADDER, LEFT PAROTID, SKIN) Cardiovascular Problems: Yes (HTN) High Cholesterol: Yes Chemotherapy: Yes (BCG) COPD: Yes Diabetes: Yes (on oral medication) Patient Takes Glucophage: Yes Endocrine: Yes Gastrointestinal Disorders: Yes (acid reflux) Genitourinary: Yes (bladder cancer, enlarged prostate) Hepatitis: No Hiatal Hernia: No Hypertension: Yes (on med) Immune Disorder: No Musculoskeletal: Yes (arthritis, chronic back pain, bulging disc in lumbar ) Neurologic: Yes (NEUROPATHY) Psychiatric: No Reproductive: No Respiratory: Yes (copd) Radiation Therapy: No Thyroid Disease: No Tetanus Vaccination: < 5 Years Past Surgical History Abdominal Surgery: No AICD: No Cardiac Surgery: No Ear Surgery: No Endocrine Surgery: No 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) Genitourinary Surgery: Yes (TURP) Joint Replacement: No Neurologic Surgery: Yes (LUMBAR LAMINECTOMIES, THORACIC LAMI, CERVICAL SURGERY) Oral Surgery: Yes (LEFT PAROTIDECTOMY, T & A) Pacemaker: No Thoracic Surgery: No Other Surgery: Yes Social History Alcohol Use: Yes (COUPLE TIMES A WEEK) Tobacco Use: No Substance Use: No Allergies-Medications (Allergen,Severity, Reaction): Coded Allergies: iodine (Unverified Allergy, Severe, Hives, 04/12/18) potassium iodide (Unverified Allergy, Severe, Hives, 04/12/18) povidone-iodine (Unverified Allergy, Severe, Hives, 04/12/18) sodium iodide (Unverified Allergy, Severe, Hives, 04/12/18) sodium iodide (Unverified Allergy, Severe, Hives, 04/12/18) venlafaxine (Unverified Allergy, Unknown, 04/12/18) pt states he cant tolerate tramadol (Unverified Adverse Reaction, Unknown, 04/12/18) pt states he cant tolerate Reported Meds & Prescriptions Reported Meds & Active Scripts Active Macrobid (Nitrofurantoin Monoh/Nitrofur Macro) 100 Mg Cap 100 Mg PO BID 7 Days Walker Rolling/GetGo (Device) 1 Mis Mis 1 Ea .ROUTE DIRECTED Reported Finasteride 5 Mg Tab 5 Mg HS Do not crush. Clonazepam 0.5 Mg Tab 0.5 Mg PO HS Sm Magnesium (Magnesium) 250 Mg Tab 500 Mg PO DAILY Aspirin Low Dose (Aspirin) 81 Mg Chew 81 Mg CHEW DAILY Tamsulosin (Tamsulosin HCl) 0.4 Mg Cap 0.4 Mg HS Hydrocodone-Acetaminophen 7.5 Mg-325 Mg Tab 1 Tab PO Q4H PRN Gabapentin 600 Mg Tab 600 Mg PO TID Amitriptyline (Amitriptyline HCl) 10 Mg Tab 20 Mg PO HS Multi For Him 50+ (Multiple Vitamins W/ Minerals) 1 Tab Tab 1 Tab PO DAILY Metformin (Metformin HCl) 1,000 Mg Tab 1,000 Mg PO BIDPC With meals Vitamin D-3 (Cholecalciferol) 2,000 Unit Tab 2,000 Units PO DAILY Omeprazole 20 Mg Tab 20 Mg PO DAILY Lisinopril 5 Mg Tab 5 Mg PO DAILY Atorvastatin (Atorvastatin Calcium) 10 Mg Tab 10 Mg PO HS Review of Systems Except as stated in HPI: all other systems reviewed are Neg Physical Exam Narrative GENERAL: Well-nourished, well-developed white male no acute distress. SKIN: Focused skin assessment warm/dry. HEAD: Normocephalic. EYES: No scleral icterus. No injection or drainage. NECK: Supple, trachea midline. No JVD or lymphadenopathy. CARDIOVASCULAR: Regular rate and rhythm without murmurs, gallops, or rubs. RESPIRATORY: Breath sounds clear and equal bilaterally. No accessory muscle use. GASTROINTESTINAL: Abdomen soft, non-tender, nondistended. Active bowel sounds. MUSCULOSKELETAL: No cyanosis, or edema. BACK: Nontender without obvious deformity. No CVA tenderness. Data Data Last Documented VS Vital Signs Date Time Temp Pulse Resp B/P (MAP) Pulse Ox O2 Delivery O2 Flow Rate FiO2 04/12/18 18:12 90 19 120/76 (91) 95 04/12/18 15:05 Room Air 04/12/18 12:26 97.6 Orders Orders Basic Metabolic Panel (Bmp) (04/12/18 15:13) Complete Blood Count With Diff (04/12/18 15:13) Urinalysis - C+S If Indicated (04/12/18 15:13) Iv Access Insert/Monitor (04/12/18 15:13) Sodium Chloride 0.9% Flush (Ns Flush) (04/12/18 15:15) Urine Culture (04/12/18 15:30) Nitrofurantoin Monohyd Macrocr (Macrobid (04/12/18 17:30) Ed Discharge Order (04/12/18 17:17) Labs Laboratory Tests Test 04/12/18 15:30 04/12/18 15:33 Urine Color RED Urine Turbidity HAZY Urine pH 5.0 Urine Specific [place] 1.020 Urine Protein 30 mg/dL Urine Glucose (UA) NEG mg/dL Urine Ketones TRACE mg/dL Urine Occult Blood LARGE Urine Nitrite NEG Urine Bilirubin NEG Urine Urobilinogen LESS THAN 2.0 MG/DL Urine Leukocyte Esterase LARGE Urine RBC /hpf Urine WBC 153 /hpf Urine Squamous Epithelial Cells 7 /hpf Urine Amorphous Sediment RARE Urine Mucus FEW /lpf Microscopic Urinalysis Comment CULTURE INDICATED White Blood Count 9.3 TH/MM3 Red Blood Count 4.50 MIL/MM3 Hemoglobin 14.1 GM/DL Hematocrit 42.7 % Mean Corpuscular Volume 94.9 FL Mean Corpuscular Hemoglobin 31.3 PG Mean Corpuscular Hemoglobin Concent 33.0 % Red Cell Distribution Width 13.6 % Platelet Count 191 TH/MM3 Mean Platelet Volume 9.5 FL Neutrophils (%) (Auto) 59.8 % Lymphocytes (%) (Auto) 31.0 % Monocytes (%) (Auto) 7.1 % Eosinophils (%) (Auto) 1.8 % Basophils (%) (Auto) 0.3 % Neutrophils # (Auto) 5.6 TH/MM3 Lymphocytes # (Auto) 2.9 TH/MM3 Monocytes # (Auto) 0.7 TH/MM3 Eosinophils # (Auto) 0.2 TH/MM3 Basophils # (Auto) 0.0 TH/MM3 CBC Comment DIFF FINAL Differential Comment Blood Urea Nitrogen 19 MG/DL Creatinine 0.91 MG/DL Random Glucose 148 MG/DL Calcium Level 8.9 MG/DL Sodium Level 139 MEQ/L Potassium Level 4.5 MEQ/L Chloride Level 105 MEQ/L Carbon Dioxide Level 25.5 MEQ/L Anion Gap 9 MEQ/L Estimat Glomerular Filtration Rate 81 ML/MIN [facility] Medical Decision Making Medical Screen Exam Complete: Yes Emergency Medical Condition: Yes Differential Diagnosis Hemorrhagic cystitis versus bladder CA versus anemia versus other Narrative Course 78-year-old male with PMH of DM, bladder CA, HTN presents to the ED for evaluation of 1 week history of hematuria and dysuria. Saw the urologist, took a few days of Macrobid. Plan was for outpatient CT urogram. Takes a baby aspirin daily. Vitals reviewed. Physical exam is reassuring. No anemia or leukocytosis on CBC. BUN 19, creatinine 0.91. GFR 81. UA: Red, hazy, trace ketones, large occult blood, large leukocyte esterase, innumerable RBCs, 153 WBCs, few mucus, rare amorphous sediment. Culture indicated. I discussed the case with Dr. Lugo. He reviewed UA from his office, culture revealed no UTI at the time. He recommends reinitiating antibiotics, continue with plan for outpatient cystogram and will see the patient in the office. I discussed this plan with the patient. He states that he had some improvement of the hematuria while he was taking Macrobid. Will reinstate that, first dose given here in the emergency room. He is given detailed discharge instructions, including reasons to return to the ED. Patient is stable and discharged home. Diagnosis Primary Impression: Urinary tract infection Qualified Codes: N39.0 - Urinary tract infection, site not specified; R31.9 - Hematuria, unspecified Additional Impression: Hematuria Qualified Codes: R31.9 - Hematuria, unspecified Referrals: Hernando Lugo MD Additional Instructions: Rest, hydrate. Begin antibiotics today and take them until every pill is gone. Follow-up with Dr. Lugo on today as discussed. Obtain outpatient CT urogram as planned. Return to the ED for worsening symptoms or any urgent or emergent medical condition. Med/Other Pt SpecificInfo: Prescription(s) given Scripts Nitrofurantoin Monohydrate Macrocrystals (Macrobid) 100 Mg Cap 100 MG PO BID for Infection for 7 Days, #14 CAP 0 Refills Prov: Marietta Mckeon MD 04/12/18 Disposition: 01 DISCHARGE HOME Condition: Stable Darlene Sanabria Apr 12, 2018 15:22
[2018-04-12 16:09] LABS: AUTOMATED NEUTROPHIL # 5.6 TH/MM3 (1.8-7.7); BASOPHIL % 0.3 % (0.0-2.0); EOSINOPHIL # 0.2 TH/MM3 (0-0.4); EOSINOPHIL % 1.8 % (0.0-4.0); HEMATOCRIT 42.7 % (39.0-51.0); HEMOGLOBIN 14.1 GM/DL (13.0-17.0); LYMPHOCYTE # 2.9 TH/MM3 (1.0-4.8); MEAN CELL VOLUME 94.9 FL (80.0-100.0); MEAN CORPUSCULAR HEMOGLOBIN 31.3 PG (27.0-34.0); MEAN PLATELET VOLUME 9.5 FL (7.0-11.0); MONO % 7.1 % (0.0-8.0); MONOCYTE # 0.7 TH/MM3 (0-0.9); NEUT % 59.8 % (16.0-70.0); PLATELET COUNT 191 TH/MM3 (150-450); RED CELL DISTRIBUTION WIDTH 13.6 % (11.6-17.2); WHITE BLOOD COUNT 9.3 TH/MM3 (4.0-11.0)
[2018-04-12 16:23] LABS: AMORPHOUS SEDIMENT, URINE RARE; BILIRUBIN, URINE NEG (NEG); BLOOD, URINE LARGE (NEG); GLUCOSE,URINE NEG (NEG); KETONE, URINE TRACE mg/dL (NEG); MUCUS URINE FEW /lpf (OCC); NITRITE,URINE NEG (NEG); SQUAMOUS EPITHELIAL CELL URINE 7 /hpf (0-5); URINE LEUKOCYTE ESTERASE LARGE (NEG)
[2018-04-12 16:24] LABS: URINE COLOR RED (YELLW/STRAW)
[2018-04-12 16:32] LABS: BICARBONATE 25.5 MEQ/L (21.0-32.0); CALCIUM 8.9 MG/DL (8.5-10.1); CREATININE 0.91 MG/DL (0.60-1.30)
[2018-04-12] MEDS ORDERED: MACR100C2 PO ×2 (17:16→17:35)
[2018-04-12] MEDS ORDERED: NITROFURANTOIN MONOHYD MACROCR 100 MG CAP PO ONE (17:30)
[2018-04-12 18:12] VITALS: BP 120/76
--- NOTE | 2018-04-13 18:40 | PD ---
Physical Exam Narrative I, Dr. Mckeon, have reviewed the mid-level providers documentation and am in agreement, that with the patient [id number], made the diagnosis, and the medical decision making was done with the mid-level provider. Please see the mid-level provider note for full history, physical, and disposition. My assessment and findings: Patient presents to the emergency department complaining of hematuria. Patient has a history of bladder cancer was scheduled for CT urogram as an outpatient. He apparently had been taking Macrobid for UTI, but was advised to stop taking the medication as I believe urine culture results were negative. He noted some improvement of symptoms with Macrobid and a recurrence of the symptoms when he stopped. He was afebrile with stable vitals in the ER. He was placed on a shelter monitor, IV access was obtained, and labs were ordered. He had a normal creatinine and UA which is positive for blood, leukocyte esterase, WBCs. Urine cultures pending. The mid-level provider discussed the case with the patient's urologist. As patient had some improvement of symptoms with Macrobid he was restarted on the Macrobid will follow up with urologist as well as follow-up for the previously scheduled CT urogram. Data Data Last Documented VS Vital Signs Date Time Temp Pulse Resp B/P (MAP) Pulse Ox O2 Delivery O2 Flow Rate FiO2 04/12/18 18:12 90 19 120/76 (91) 95 04/12/18 15:05 Room Air 04/12/18 12:26 97.6 Orders Orders Basic Metabolic Panel (Bmp) (04/12/18 15:13) Complete Blood Count With Diff (04/12/18 15:13) Urinalysis - C+S If Indicated (04/12/18 15:13) Iv Access Insert/Monitor (04/12/18 15:13) Sodium Chloride 0.9% Flush (Ns Flush) (04/12/18 15:15) Urine Culture (04/12/18 15:30) Nitrofurantoin Monohyd Macrocr (Macrobid (04/12/18 17:30) Ed Discharge Order (04/12/18 17:17) Labs Laboratory Tests Test 04/12/18 15:30 04/12/18 15:33 Urine Color RED Urine Turbidity HAZY Urine pH 5.0 Urine Specific [place] 1.020 Urine Protein 30 mg/dL Urine Glucose (UA) NEG mg/dL Urine Ketones TRACE mg/dL Urine Occult Blood LARGE Urine Nitrite NEG Urine Bilirubin NEG Urine Urobilinogen LESS THAN 2.0 MG/DL Urine Leukocyte Esterase LARGE Urine RBC /hpf Urine WBC 153 /hpf Urine Squamous Epithelial Cells 7 /hpf Urine Amorphous Sediment RARE Urine Mucus FEW /lpf Microscopic Urinalysis Comment CULTURE INDICATED White Blood Count 9.3 TH/MM3 Red Blood Count 4.50 MIL/MM3 Hemoglobin 14.1 GM/DL Hematocrit 42.7 % Mean Corpuscular Volume 94.9 FL Mean Corpuscular Hemoglobin 31.3 PG Mean Corpuscular Hemoglobin Concent 33.0 % Red Cell Distribution Width 13.6 % Platelet Count 191 TH/MM3 Mean Platelet Volume 9.5 FL Neutrophils (%) (Auto) 59.8 % Lymphocytes (%) (Auto) 31.0 % Monocytes (%) (Auto) 7.1 % Eosinophils (%) (Auto) 1.8 % Basophils (%) (Auto) 0.3 % Neutrophils # (Auto) 5.6 TH/MM3 Lymphocytes # (Auto) 2.9 TH/MM3 Monocytes # (Auto) 0.7 TH/MM3 Eosinophils # (Auto) 0.2 TH/MM3 Basophils # (Auto) 0.0 TH/MM3 CBC Comment DIFF FINAL Differential Comment Blood Urea Nitrogen 19 MG/DL Creatinine 0.91 MG/DL Random Glucose 148 MG/DL Calcium Level 8.9 MG/DL Sodium Level 139 MEQ/L Potassium Level 4.5 MEQ/L Chloride Level 105 MEQ/L Carbon Dioxide Level 25.5 MEQ/L Anion Gap 9 MEQ/L Estimat Glomerular Filtration Rate 81 ML/MIN [facility] Supervised Visit with TONE: Yes Diagnosis Primary Impression: Urinary tract infection Qualified Codes: N30.01 - Acute cystitis with hematuria Additional Impression: Hematuria Qualified Codes: R31.0 - Gross hematuria Referrals: Hernando Lugo MD Patient Instructions: General Instructions Departure Forms: Tests/Procedures Additional Instruction: Rest, hydrate. Begin antibiotics today and take them until every pill is gone. Follow-up with Dr. Lugo on today as discussed. Obtain outpatient CT urogram as planned. Return to the ED for worsening symptoms or any urgent or emergent medical condition. Scripts Nitrofurantoin Monohydrate Macrocrystals (Macrobid) 100 Mg Cap 100 MG PO BID for Infection for 7 Days, #14 CAP 0 Refills Prov: Marietta Mckeon MD 04/12/18 Disposition: 01 DISCHARGE HOME Condition: Stable Marietta Mckeon MD Apr 13, 2018 18:40
== END 2018-04-12 18:11 | disposition home or self-care (01) ==
LOC: NEPC 11:45
DX: C67.9 Malignant neoplasm of bladder, unspecified (principal); N30.01 Acute cystitis with hematuria; E11.9 Type 2 diabetes mellitus without complications; E78.00 Pure hypercholesterolemia, unspecified; I10 Essential (primary) hypertension; Z79.84 Long term (current) use of oral hypoglycemic drugs
CPT/HCPCS: 80048; 81001; 85025; 87086; 99283

== ENCOUNTER 2018-05-20 17:46 | Inpatient (IN) ==
[2018-05-20] MEDS ORDERED: Sod Chloride 0.9% Inj 1,000 ML IV.SIG ONE ×2 (18:38→21:26)
--- NOTE | 2018-05-20 18:43 | ED ---
HPI General Chief Complaint: Fever Stated Complaint: Nausea & vomiting,confusion Time Seen by Provider: 05/20/18 18:30 Source: patient and family Mode of arrival: ambulatory Limitations: no limitations History of Present Illness HPI Narrative: The patient is a 78-year-old male who presents emergency department for fever. The patient states he developed symptoms yesterday of fatigue, slept most of the day. The patient then played poker earlier today with his friends at the [employer] and when he returned home he has significant increase in fatigue. The patient then developed subjective fever, rigors with shaking, and nausea with vomiting. The patient does note recent travel, he did a river cruise from [facility] up to the [facility], he stated there was one sick individual on the boat. He states the temperature was cool, there is no significant mosquito exposure. The patient does state 6 weeks ago he had a cystoscopy and developed a UTI after which for which he took antibiotics. He is followed by his urologist, Dr. Lugo. The patient does complain of body aches, mostly lower extremity weakness, nausea, vomiting, and fever. He denies any sore throat, nasal congestion, cough, chest pain, or shortness of breath. He denies any diarrhea or dysuria. Symptoms are moderate. There are no current alleviating factors. MD complaint: fever Onset (ago): hour(s) Temperature Source: subjective Context: recent travel Associated symptoms: chills, rigors, nausea and vomiting Relieving factors: nothing Exacerbating factors: nothing Treatments prior to arrival fever: none Related Data Home Medications Medication Instructions Recorded Confirmed amitriptyline 20 mg PO HS 05/20/18 05/20/18 aspirin [Aspir-81] 81 mg PO DAILY 05/20/18 05/20/18 atorvastatin 10 mg PO DAILY 05/20/18 05/20/18 cholecalciferol (vitamin D3) 2,000 unit PO DAILY 05/20/18 05/20/18 [Vitamin D3] clonazepam 0.5 mg PO BID PRN 05/20/18 05/20/18 finasteride 5 mg PO DAILY 05/20/18 05/20/18 gabapentin 600 mg PO TID 05/20/18 05/20/18 hydrocodone-acetaminophen 1 tab PO Q6H PRN 05/20/18 05/20/18 lisinopril 5 mg PO DAILY 05/20/18 05/20/18 magnesium 500 mg PO DAILY 05/20/18 05/20/18 metformin 1,000 mg PO BID 05/20/18 05/20/18 omeprazole 20 mg PO DAILY 05/20/18 05/20/18 tamsulosin 0.4 mg PO DAILY 05/20/18 05/20/18 Allergies Allergy/AdvReac Type Severity Reaction Status Date / Time iodine Allergy Severe Hives Verified 05/20/18 19:10 potassium iodide Allergy Severe Hives Verified 05/20/18 19:10 povidone-iodine Allergy Severe Hives Verified 05/20/18 19:10 sodium iodide Allergy Severe Hives Verified 05/20/18 19:10 sodium iodide Allergy Severe Hives Verified 05/20/18 19:10 venlafaxine Allergy Unknown Hives Verified 05/20/18 19:10 tramadol AdvReac Unknown Hives Verified 05/20/18 19:10 Review of Systems Except as stated in HPI: all other systems reviewed are negative Constitutional Reports body ache(s), Reports fatigue, Reports fever(s), Reports lethargy, Reports malaise and Reports weakness ENT Denies headache(s), Denies nasal congestion, Denies sinus pain, Denies sinus pressure and Denies sore throat Cardiovascular Denies chest pain Respiratory Denies cough and Denies dyspnea Gastrointestinal Denies abdominal pain, Denies diarrhea, Reports nausea and Reports vomiting Genitourinary Denies dysuria [facility] Medical History Medical History Acid reflux (Acute) Bladder cancer (Acute) Diabetes (Acute) Enlarged prostate (Acute) Fatty liver (Acute) Gall stones (Acute) High blood pressure (Acute) High cholesterol (Acute) Neuropathy (Acute) Surgical History Surgical History H/O eye surgery (Acute) H/O neck surgery (Acute) Social History Social History Substance History: No History of Abuse Second Hand Smoke Exposure: No Smoking Status: Former smoker How Often Do You Have a Drink Containing Alcohol: Monthly or less Recent Travel in [facility] within the Last 8 Weeks: No Recent Out of Country Travel within the Last 8 Weeks: Yes Exam Narrative Exam Narrative: GENERAL: Awake, alert, pleasant 78-year-old male who appears his stated age and is in no acute respiratory distress. SKIN: Focused skin assessment warm/dry. Warm to the touch. HEAD: Atraumatic. Normocephalic. EYES: Pupils equal and round. 3 mm bilateral and reactive. ENT: No nasal bleeding or discharge. Mucous membranes pink and moist. NECK: Trachea midline. No JVD. CARDIOVASCULAR: Regular, tachycardic, heart rate in the 120s. RESPIRATORY: No accessory muscle use. Clear to auscultation. Breath sounds equal bilaterally. GASTROINTESTINAL: Abdomen soft, non-tender, nondistended. No rebound tenderness , guarding, rigidity. Back: No CVA tenderness. MUSCULOSKELETAL: No obvious deformities. No clubbing. No cyanosis. No edema. NEUROLOGICAL: Awake and alert. No obvious cranial nerve deficits. Motor grossly within normal limits. Normal speech. PSYCHIATRIC: Appropriate mood and affect; insight and judgment normal. Course Initial Documented Vital Signs Temperature 103.5 F H 05/20/18 18:03 Pulse Rate 124 H 05/20/18 18:03 Respiratory Rate 16 05/20/18 18:03 Blood Pressure 150/78 H 05/20/18 18:03 Pulse Oximetry 90 L 05/20/18 18:03 Last Documented Vital Signs Temperature 97.7 F 05/21/18 12:00 Pulse Rate 75 05/21/18 12:00 Respiratory Rate 18 05/21/18 12:00 Blood Pressure 119/70 05/21/18 12:00 Pulse Oximetry 93 L 05/21/18 12:00 Sign Out Sign Out Data: Patient Sign Out occurred on 05/20/18 at 19:12. Patient's care was discussed, and care was transferred from Naif Anguiano MD to Paul Flannery MD. Sign Out Comment: Patient presents with sepsis parameters, sepsis protocol instituted. Laboratory evaluation, influenza, UA, chest x-ray, and blood cultures pending. Recent travel from [facility] in the [facility] [address] [place] and recent history of UTI after cystoscopy. Last updated by Naif Anguiano MD at 05/20/18 18:50 Post-Handoff Eval: 78-year-old man, presented with fever, rigors, shaking, nausea, vomiting, etiology is not quite clear. Looks well. He was a bit tachycardic earlier, significant fever, lactate elevated. Given his age, elevated lactate, recommend admission for rule out bacteremia or sepsis. We will dose antibiotics , second liter of fluid. Not obviously volume depleted. Medical Decision Making MDM Narrative Medical decision making narrative: IV was established, labs are drawn and sent, and the patient was placed on cardiac telemetry monitoring and continuous pulse oximetry monitoring. Blood culture, lactic acid, UA, influenza screen, and lab work was sent to lab. The patient was actively vomiting, therefore, was administered Zofran 4 mg ODT 1 L of IV fluids. Sepsis protocol was instituted. The patient was signed out to the oncoming physician, Dr. Flannery, at 7 PM. Differential Diagnosis Differential Diagnosis: Differential diagnosis includes sepsis, pneumonia, UTI, bacteremia, septicemia, influenza, viral syndrome, malaria, dengue fever, Lab Data Lab results reviewed: Yes I reviewed the patient's lab results. Result diagrams: 05/21/18 08:29 05/21/18 08:29 Lab Results 05/20/18 05/20/18 05/20/18 Range/Units 18:45 18:45 18:50 WBC 8.9 (4.0-11.0) th/mm3 RBC 4.48 L (4.50-5.90) mil/mm3 Hgb 14.3 (13.0-17.0) gm/dL Hct 42.4 (39.0-51.0) % MCV 94.7 (80.0-100.0) fL MCH 31.8 (27.0-34.0) pg MCHC 33.6 (32.0-36.0) % RDW 13.8 (11.6-17.2) % Plt Count 153 (150-450) th/mm3 MPV 9.4 (7.0-11.0) fL Neut % (Auto) 84.6 H (16.0-70.0) % Lymph % (Auto) 6.0 L (9.0-44.0) % Kidder % (Auto) 7.3 (0.0-8.0) % Eos % (Auto) 1.7 (0.0-4.0) % Baso % (Auto) 0.4 (0.0-2.0) % Neut # (Auto) 7.5 (1.8-7.7) th/mm3 Lymph # (Auto) 0.5 L (1.0-4.8) th/mm3 Kidder # (Auto) 0.7 (0.0-0.9) th/mm3 Eos # (Auto) 0.1 (0.0-0.4) th/mm3 Baso # (Auto) 0.0 (0.0-0.2) th/mm3 WBC Differential . Differential Comment Auto diff final Sodium 139 (136-145) meq/L Potassium 4.1 (3.5-5.1) meq/L Chloride 103 (98-107) meq/L Carbon Dioxide 23.0 (21.0-32.0) meq/L Anion Gap 13 (5-15) meq/L BUN 25 H (7-18) mg/dL Creatinine 1.19 (0.60-1.30) mg/dL Estimated GFR 59 L (>89) mL/min POC Glucose (68-110) mg/dl Random Glucose 219 H (74-106) mg/dL Lactic Acid 3.7 H (0.4-2.0) mmol/L Calcium 9.4 (8.5-10.1) mg/dL Total Bilirubin 1.3 H (0.2-1.0) mg/dL AST 23 (15-37) U/L ALT 37 (12-78) U/L Alkaline Phosphatase 77 (45-117) U/L Total Protein 7.3 (6.4-8.2) g/dL Albumin 3.7 (3.4-5.0) g/dL Lipase 82 (73-393) U/L Urine Color (Yellw/Straw) Urine Clarity (Clear) Urine pH (5.0-8.5) Ur Specific Buda (1.002-1.035) Urine Protein (Neg-Trace) mg/dL Urine Glucose (UA) (Negative) mg/dL Urine Ketones (Negative) mg/dL Urine Occult Blood (Negative) Urine Nitrate (Negative) Urine Bilirubin (Negative) Urine Urobilinogen (Less than 2) mg/dL Ur Leukocyte Esterase (Negative) Urine RBC (0-3) /hpf Urine WBC (0-5) /hpf Hyaline Casts (0-3) /lpf Urine Mucus (Occasional) /lpf Micro UA Comment Urine Culture Comments 05/20/18 05/20/18 05/21/18 Range/Units 19:26 19:56 00:13 WBC (4.0-11.0) th/mm3 RBC (4.50-5.90) mil/mm3 Hgb (13.0-17.0) gm/dL Hct (39.0-51.0) % MCV (80.0-100.0) fL MCH (27.0-34.0) pg MCHC (32.0-36.0) % RDW (11.6-17.2) % Plt Count (150-450) th/mm3 MPV (7.0-11.0) fL Neut % (Auto) (16.0-70.0) % Lymph % (Auto) (9.0-44.0) % Kidder % (Auto) (0.0-8.0) % Eos % (Auto) (0.0-4.0) % Baso % (Auto) (0.0-2.0) % Neut # (Auto) (1.8-7.7) th/mm3 Lymph # (Auto) (1.0-4.8) th/mm3 Kidder # (Auto) (0.0-0.9) th/mm3 Eos # (Auto) (0.0-0.4) th/mm3 Baso # (Auto) (0.0-0.2) th/mm3 WBC Differential Differential Comment Sodium (136-145) meq/L Potassium (3.5-5.1) meq/L Chloride (98-107) meq/L Carbon Dioxide (21.0-32.0) meq/L Anion Gap (5-15) meq/L BUN (7-18) mg/dL Creatinine (0.60-1.30) mg/dL Estimated GFR (>89) mL/min POC Glucose 228 H (68-110) mg/dl Random Glucose (74-106) mg/dL Lactic Acid 2.6 H (0.4-2.0) mmol/L Calcium (8.5-10.1) mg/dL Total Bilirubin (0.2-1.0) mg/dL AST (15-37) U/L ALT (12-78) U/L Alkaline Phosphatase (45-117) U/L Total Protein (6.4-8.2) g/dL Albumin (3.4-5.0) g/dL Lipase (73-393) U/L Urine Color Yellow (Yellw/Straw) Urine Clarity Clear (Clear) Urine pH 5.0 (5.0-8.5) Ur Specific Buda 1.013 (1.002-1.035) Urine Protein Negative (Neg-Trace) mg/dL Urine Glucose (UA) Negative (Negative) mg/dL Urine Ketones Negative (Negative) mg/dL Urine Occult Blood Negative (Negative) Urine Nitrate Negative (Negative) Urine Bilirubin Negative (Negative) Urine Urobilinogen Less than 2 (Less than 2) mg/dL Ur Leukocyte Esterase Negative (Negative) Urine RBC 1 (0-3) /hpf Urine WBC 1 (0-5) /hpf Hyaline Casts 3 (0-3) /lpf Urine Mucus Few H (Occasional) /lpf Micro UA Comment Culture not ind Urine Culture Comments Culture not ind 05/21/18 05/21/18 05/21/18 Range/Units 07:17 08:29 08:29 WBC 8.5 (4.0-11.0) th/mm3 RBC 4.03 L (4.50-5.90) mil/mm3 Hgb 12.8 L (13.0-17.0) gm/dL Hct 38.8 L (39.0-51.0) % MCV 96.2 (80.0-100.0) fL MCH 31.8 (27.0-34.0) pg MCHC 33.1 (32.0-36.0) % RDW 13.6 (11.6-17.2) % Plt Count 150 (150-450) th/mm3 MPV 9.4 (7.0-11.0) fL Neut % (Auto) 77.0 H (16.0-70.0) % Lymph % (Auto) 12.9 (9.0-44.0) % Kidder % (Auto) 7.7 (0.0-8.0) % Eos % (Auto) 2.1 (0.0-4.0) % Baso % (Auto) 0.3 (0.0-2.0) % Neut # (Auto) 6.5 (1.8-7.7) th/mm3 Lymph # (Auto) 1.1 (1.0-4.8) th/mm3 Kidder # (Auto) 0.7 (0.0-0.9) th/mm3 Eos # (Auto) 0.2 (0.0-0.4) th/mm3 Baso # (Auto) 0.0 (0.0-0.2) th/mm3 WBC Differential . Differential Comment Auto diff final Sodium 140 (136-145) meq/L Potassium 4.1 (3.5-5.1) meq/L Chloride 108 H (98-107) meq/L Carbon Dioxide 23.5 (21.0-32.0) meq/L Anion Gap 9 (5-15) meq/L BUN 19 H (7-18) mg/dL Creatinine 0.94 (0.60-1.30) mg/dL Estimated GFR 78 L (>89) mL/min POC Glucose 169 H (68-110) mg/dl Random Glucose 197 H (74-106) mg/dL Lactic Acid (0.4-2.0) mmol/L Calcium 8.2 L D (8.5-10.1) mg/dL Total Bilirubin 1.2 H (0.2-1.0) mg/dL AST 24 (15-37) U/L ALT 32 (12-78) U/L Alkaline Phosphatase 62 (45-117) U/L Total Protein 6.3 L D (6.4-8.2) g/dL Albumin 3.1 L D (3.4-5.0) g/dL Lipase (73-393) U/L Urine Color (Yellw/Straw) Urine Clarity (Clear) Urine pH (5.0-8.5) Ur Specific Buda (1.002-1.035) Urine Protein (Neg-Trace) mg/dL Urine Glucose (UA) (Negative) mg/dL Urine Ketones (Negative) mg/dL Urine Occult Blood (Negative) Urine Nitrate (Negative) Urine Bilirubin (Negative) Urine Urobilinogen (Less than 2) mg/dL Ur Leukocyte Esterase (Negative) Urine RBC (0-3) /hpf Urine WBC (0-5) /hpf Hyaline Casts (0-3) /lpf Urine Mucus (Occasional) /lpf Micro UA Comment Urine Culture Comments 05/21/18 05/21/18 Range/Units 08:29 11:38 WBC (4.0-11.0) th/mm3 RBC (4.50-5.90) mil/mm3 Hgb (13.0-17.0) gm/dL Hct (39.0-51.0) % MCV (80.0-100.0) fL MCH (27.0-34.0) pg MCHC (32.0-36.0) % RDW (11.6-17.2) % Plt Count (150-450) th/mm3 MPV (7.0-11.0) fL Neut % (Auto) (16.0-70.0) % Lymph % (Auto) (9.0-44.0) % Kidder % (Auto) (0.0-8.0) % Eos % (Auto) (0.0-4.0) % Baso % (Auto) (0.0-2.0) % Neut # (Auto) (1.8-7.7) th/mm3 Lymph # (Auto) (1.0-4.8) th/mm3 Kidder # (Auto) (0.0-0.9) th/mm3 Eos # (Auto) (0.0-0.4) th/mm3 Baso # (Auto) (0.0-0.2) th/mm3 WBC Differential Differential Comment Sodium (136-145) meq/L Potassium (3.5-5.1) meq/L Chloride (98-107) meq/L Carbon Dioxide (21.0-32.0) meq/L Anion Gap (5-15) meq/L BUN (7-18) mg/dL Creatinine (0.60-1.30) mg/dL Estimated GFR (>89) mL/min POC Glucose 202 H (68-110) mg/dl Random Glucose (74-106) mg/dL Lactic Acid 1.5 (0.4-2.0) mmol/L Calcium (8.5-10.1) mg/dL Total Bilirubin (0.2-1.0) mg/dL AST (15-37) U/L ALT (12-78) U/L Alkaline Phosphatase (45-117) U/L Total Protein (6.4-8.2) g/dL Albumin (3.4-5.0) g/dL Lipase (73-393) U/L Urine Color (Yellw/Straw) Urine Clarity (Clear) Urine pH (5.0-8.5) Ur Specific Buda (1.002-1.035) Urine Protein (Neg-Trace) mg/dL Urine Glucose (UA) (Negative) mg/dL Urine Ketones (Negative) mg/dL Urine Occult Blood (Negative) Urine Nitrate (Negative) Urine Bilirubin (Negative) Urine Urobilinogen (Less than 2) mg/dL Ur Leukocyte Esterase (Negative) Urine RBC (0-3) /hpf Urine WBC (0-5) /hpf Hyaline Casts (0-3) /lpf Urine Mucus (Occasional) /lpf Micro UA Comment Urine Culture Comments Imaging Data Radiologist's impression: Chest X-Ray 05/20/18 18:38 CONCLUSION: Underinflated examination with atelectasis at both lung bases. Otherwise, no acute finding is identified given the underinflation. Chest x-ray negative. Discharge Plan Discharge Disposition Patient Disposition: 30 Still Patient Discharge Condition Condition: Stable Physicians Team ED Provider: Paul Flannery Primary Care Provider: UNKNOWN, Attending Provider: Jared Amador Discharge Interventions Interventions: ED Discharge Assessment Last Done: 05/20/18 23:55 Vital Signs Last Done: 05/20/18 21:16 Status ED Status: Left Department Discharge Information Discharge Date/Time: 05/20/18 23:55
--- NOTE | 2018-05-20 19:16 | XR ---
EXAM DATE: 05/20/2018 6:59 PM EDT AGE/SEX: 78 years / Male INDICATIONS: Fever. CLINICAL DATA: This is the patient's initial encounter. Patient reports that signs and symptoms have been present for 1 day and indicates a pain score of 0/10. MEDICAL/SURGICAL HISTORY: Diabetes mellitus type II. Chronic obstructive pulmonary disease. H ypercholesterolemia. Hypertension. . C-spine. L-spine. COMPARISON: [facility] [place], CHEST SINGLE AP, 12/31/2016. . FINDINGS: Portable AP view of the chest demonstrates a normal-sized cardiac silhouette. EKG lines overlie the p atient. Lungs are underinflated with atelectasis at both lung bases. No pleural effusion or pneumotho rax is identified. The bones and soft tissues demonstrate no acute finding. CONCLUSION: Underinflated examination with atelectasis at both lung bases. Otherwise, no acute finding is identif ied given the underinflation. Electronically signed by: Levi Whittington MD 05/20/2018 7:14 PM EDT
[2018-05-20 19:33] LABS: Albumin 3.7 g/dL (3.4-5.0); Anion Gap 13 meq/L (5-15); Aspartate Aminotransferase 23 U/L (15-37); Baso % (Auto) 0.4 % (0.0-2.0); Blood Urea Nitrogen 25 mg/dL (7-18); Calcium 9.4 mg/dL (8.5-10.1); Chloride 103 meq/L (98-107); Eos # (Auto) 0.1 th/mm3 (0.0-0.4); Eos % (Auto) 1.7 % (0.0-4.0); Glomerular Filtration Rate 59 mL/min (>89); Glucose,Random 219 mg/dL (74-106); Hematocrit 42.4 % (39.0-51.0); Hemoglobin 14.3 gm/dL (13.0-17.0); Lipase 82 U/L (73-393); Lymph # (Auto) 0.5 th/mm3 (1.0-4.8); Mean Corpuscular HGB Conc 33.6 % (32.0-36.0); Mean Corpuscular Hemoglobin 31.8 pg (27.0-34.0); Mean Corpuscular Volume 94.7 fL (80.0-100.0); Mean Platelet Volume 9.4 fL (7.0-11.0); Mono # (Auto) 0.7 th/mm3 (0.0-0.9); Mono % (Auto) 7.3 % (0.0-8.0); Neut # (Auto) 7.5 th/mm3 (1.8-7.7); Neut % (Auto) 84.6 % (16.0-70.0); Platelet Count 153 th/mm3 (150-450); Potassium 4.1 meq/L (3.5-5.1); Red Blood Count 4.48 mil/mm3 (4.50-5.90); Red Cell Distribution Width 13.8 % (11.6-17.2); Sodium 139 meq/L (136-145); White Blood Count 8.9 th/mm3 (4.0-11.0)
[2018-05-20 19:34] LABS: Alanine Aminotransferase 37 U/L (12-78)
[2018-05-20 19:36] LABS: Alkaline Phosphatase 77 U/L (45-117); Total Protein 7.3 g/dL (6.4-8.2)
[2018-05-20 20:42] LABS: Bilirubin,Urine Negative (Negative); Clarity,Urine Clear (Clear); Color,Urine Yellow (Yellw/Straw); Glucose,Urine (UA) Negative (Negative); Hyaline Casts,Urine 3 /lpf (0-3); Leukocyte Esterase,Urine Negative (Negative); Mucus,Urine Few /lpf (Occasional); Nitrite,Urine Negative (Negative); Specific Gravity,Urine 1.013 (1.002-1.035)
[2018-05-20] MEDS ORDERED: Vancomycin Inj 1,000 MG in Sodium Chlor 0.9% Inj 250 ML IV.SIG ONE (21:24)
[2018-05-20] MEDS ORDERED: clonazePAM 0.5 MG Tablet PO PRN (21:44)
[2018-05-20] MEDS ORDERED: Dextrose 50% in Water 50 ML Vial IV.PUSH PRN (21:45)
[2018-05-20] MEDS ORDERED: Bisacodyl 10 MG Supp RECTAL PRN (21:46)
[2018-05-20] MEDS ORDERED: Acetaminophen 325 MG Tablet PO PRN (21:46)
--- NOTE | 2018-05-20 21:50 | P.HPIM ---
History of Present Illness Primary Care Physician: UNKNOWN History of Present Illness: This is a 78-year-old male with PMH of HTN, DM, Bladder CA, Peripheral Neuropathy and Reflux who presented to ER with complaints of generalized fatigue and fever starting earlier today. Pt states he'd been feeling fine, played poker with some friends but had significant weakness when he got home. Denies nausea, vomiting, diarrhea, cough, chest pain or SOB. Reports he returned from cruise w/ his but denies any symptoms until today. On arrival, Temp 103.1, BP 106/71, HR 115, O2 sat 95% on 3L NC. CBC essentially unremarkable. Chemistry unremarkable except for BUN 25, GFR 59. Lactic Acid 3.7. UA negative. CXR with no acute findings. Flu negative. S/p Blood Cultures, Vanc/Cefepime. - Diagnosis (1) SIRS (systemic inflammatory response syndrome) (2) DM (diabetes mellitus) (3) Lactic acidosis Inpatient Certification: I certify that the inpatient services were ordered in accordance with Medicare regulations governing the order. This includes certification that hospital inpatient services are reasonable and necessary and in the case of services not specified as inpatient-only under 42 CFR 419.22(n), that they are appropriately provided as inpatient services in accordance to with the 2-midnight benchmark under 43 CFR 412.3(e) Estimated Total Length of Stay (Days): 2 Plans for Post Hospital Care: Not yet determined Review of Systems All other systems reviewed negative except as stated in HPI [facility] - History History Provided By: Patient - Medical History Medical History: Medical History (Last Updated 05/20/18 @ 19:31 by Radha Pacheco) Acid reflux Bladder cancer Diabetes Enlarged prostate Fatty liver Gall stones High blood pressure High cholesterol Neuropathy - Surgical History Surgical History: Surgical History (Last Updated 05/20/18 @ 19:31 by Radha Pacheco) H/O eye surgery H/O neck surgery - Tobacco History Second Hand Smoke Exposure: No Tobacco Use In Past 30 Days: No Smoking Status: Former smoker - Alcohol History How Often Do You Have a Drink Containing Alcohol: Monthly or less - Substance Use History Substance History: No History of Abuse - Travel History Recent Travel in the [place] Within the Last 8 Weeks: No Recent Travel Out of the Country Within the Last 8 Weeks: Yes - Immunization History Tetanus Immunization: Unsure Hx Influenza Vaccine This Season: Yes Medications and Allergies Active Medications: Active Medications Acetaminophen (Tylenol) 650 mg PO Q4H PRN PRN Reason: FEVER/PAIN 1-2 Al Hydroxide/Mg Hydroxide (Milk Of Magnesia Liq) 30 ml PO Q12H PRN PRN Reason: Mild Constipation Amitriptyline HCl (Elavil) 20 mg PO HS [facility] Aspirin (Ecotrin) 81 mg PO DAILY [facility] Atorvastatin Calcium (Lipitor) 10 mg PO DAILY [facility] Bisacodyl (Dulcolax Supp) 10 mg RECTAL DAILY PRN PRN Reason: SEVERE CONSITIPATION Clonazepam (Klonopin) 0.5 mg PO BID PRN PRN Reason: Anxiety Dextrose (D50w Vial) 50 ml IV.PUSH UNSCH PRN PRN Reason: PER HYPOGLYCEMIA PROTOCOL Finasteride (Proscar) 5 mg PO DAILY [facility] Glucagon (Glucagon Inj) 1 mg OTHER PRN PRN PRN Reason: for Hypoglycemia Protocol Vancomycin HCl 1,000 mg/ (Sodium Chloride) 250 mls @ 250 mls/hr IV.SIG ONCE ONE Stop: 05/20/18 22:23 Cefepime HCl 2,000 mg/ Sodium (Chloride) 100 mls @ 200 mls/hr IV.SIG ONCE ONE Stop: 05/20/18 21:53 Sodium Chloride (Ns Inj) 1,000 mls @ 100 mls/hr IV.CONT .Q10H [facility] Insulin Aspart (Novolog Insulin Suppl Scale Inj) 0 unit SQ ACHS EUGENIO; Protocol Lactulose (Lactulose Liq) 30 ml PO DAILY PRN PRN Reason: SEVERE CONSITIPATION Metoclopramide HCl (Reglan Inj) 5 mg IV.PUSH Q6HR PRN; Protocol PRN Reason: NAUSEA OR VOMITING Non-Formulary Medication (Gabapentin [Gabapentin]) 600 mg PO TID [facility] Non-Formulary Medication (Metformin [Metformin]) 1,000 mg PO BID [facility] Non-Formulary Medication (Omeprazole [Omeprazole]) 20 mg PO DAILY [facility] Senna/Docusate Sodium (Cora-Colace) 1 tab PO BID [facility] Sennosides (Senokot) 17.2 mg PO Q12H PRN PRN Reason: Moderate Constipation Tamsulosin HCl (Flomax) 0.4 mg PO DAILY [facility] Allergies Allergy/AdvReac Type Severity Reaction Status Date / Time iodine Allergy Severe Hives Verified 05/20/18 19:10 potassium iodide Allergy Severe Hives Verified 05/20/18 19:10 povidone-iodine Allergy Severe Hives Verified 05/20/18 19:10 sodium iodide Allergy Severe Hives Verified 05/20/18 19:10 sodium iodide Allergy Severe Hives Verified 05/20/18 19:10 venlafaxine Allergy Unknown Hives Verified 05/20/18 19:10 tramadol AdvReac Unknown Hives Verified 05/20/18 19:10 Home Medications Medication Instructions Recorded Confirmed Type amitriptyline 20 mg PO HS 05/20/18 05/20/18 History aspirin [Aspir-81] 81 mg PO DAILY 05/20/18 05/20/18 History atorvastatin 10 mg PO DAILY 05/20/18 05/20/18 History cholecalciferol (vitamin D3) 2,000 unit PO DAILY 05/20/18 05/20/18 History [Vitamin D3] clonazepam 0.5 mg PO BID PRN 05/20/18 05/20/18 History finasteride 5 mg PO DAILY 05/20/18 05/20/18 History gabapentin 600 mg PO TID 05/20/18 05/20/18 History hydrocodone-acetaminophen 1 tab PO Q6H PRN 05/20/18 05/20/18 History lisinopril 5 mg PO DAILY 05/20/18 05/20/18 History magnesium 500 mg PO DAILY 05/20/18 05/20/18 History metformin 1,000 mg PO BID 05/20/18 05/20/18 History omeprazole 20 mg PO DAILY 05/20/18 05/20/18 History tamsulosin 0.4 mg PO DAILY 05/20/18 05/20/18 History Exam Vital signs: Vital Signs 05/20/18 18:03 05/20/18 19:00 05/20/18 19:33 Temperature 103.5 F H Pulse Rate 124 H 115 H 106 H Respiratory Rate 16 18 Blood Pressure 150/78 H 106/71 Pulse Oximetry 90 L 96 05/20/18 20:08 05/20/18 21:16 Temperature Pulse Rate 105 H 98 H Respiratory Rate 18 16 Blood Pressure 133/79 120/79 Pulse Oximetry 94 L 95 Intake & Output 05/20/18 05/20/18 05/21/18 06:59 18:59 06:59 Weight 89.811 kg Narrative: PE: GENERAL: Very pleasant elderly white male in no acute distress. at bedside HEENT: DEV [place]UONG. No scleral icterus or conjunctival pallor. No lid lag or facial droop. CARDIOVASCULAR: Regular rate and rhythm. No obvious murmurs to auscultation. No chest tenderness to palpation. RESPIRATORY: No obvious rhonchi or wheezing. Clear to auscultation. Breath sounds equal bilaterally. GASTROINTESTINAL: Abdomen soft, non-tender, nondistended. BS normal. MUSCULOSKELETAL: Extremities without clubbing, cyanosis, or edema. No obvious deformities. NEUROLOGICAL: Awake, alert and oriented x4. No focal neurologic deficits. Moving both upper and lower extremities spontaneously. Results - Labs CBC & Chem 7: 05/20/18 18:45 05/20/18 18:45 Labs: Short CBC 05/20/18 Range/Units 18:45 WBC 8.9 (4.0-11.0) th/mm3 Hgb 14.3 (13.0-17.0) gm/dL Hct 42.4 (39.0-51.0) % Plt Count 153 (150-450) th/mm3 BMP 05/20/18 18:45 Sodium 139 Potassium 4.1 Chloride 103 Carbon Dioxide 23.0 BUN 25 H Creatinine 1.19 Calcium 9.4 Liver Function 05/20/18 Range/Units 18:45 Total Bilirubin 1.3 H (0.2-1.0) mg/dL AST 23 (15-37) U/L ALT 37 (12-78) U/L Alkaline Phosphatase 77 (45-117) U/L Albumin 3.7 (3.4-5.0) g/dL Urine 05/20/18 Range/Units 19:56 Urine Color Yellow (Yellw/Straw) Urine Clarity Clear (Clear) Urine pH 5.0 (5.0-8.5) Ur Specific [place] 1.013 (1.002-1.035) Urine Protein Negative (Neg-Trace) mg/dL Urine Glucose (UA) Negative (Negative) mg/dL - Imaging Impressions Chest X-Ray 05/20/18 18:38 CONCLUSION: Underinflated examination with atelectasis at both lung bases. Otherwise, no acute finding is identified given the underinflation. Caprini VTE Risk Assessment Caprini VTE Risk Assessment: No/Low Risk (score <= 1) Caprini Risk Assessment Model: Point Value = 1 Point Value = 2 Point Value = 3 Point Value = 5 Age 41-60 Minor surgery BMI > 25 kg/m2 Swollen legs Varicose veins or History of unexplained or recurrent spontaneous Oral contraceptives or hormone replacement Sepsis (< 1 month) Serious lung disease, including pneumonia (< 1 month) Abnormal pulmonary function Acute myocardial infarction Congestive heart failure (< 1 month) History of inflammatory bowel disease Medical patient at bed rest Age 61-74 Arthroscopic surgery Major open surgery (> 45 min) Laparoscopic surgery (> 45 min) Malignancy Confined to bed (> 72 hours) Immobilizing plaster cast Central venous access Age >= 75 History of VTE Family history of VTE Factor V Leiden Prothrombin [id number] Lupus anticoagulant Anticardiolipin antibodies Elevated serum homocysteine Heparin-induced thrombocytopenia Other congenital or acquired thrombophilia Stroke (< 1 month) Elective arthroplasty Hip, pelvis, or leg fracture Acute spinal cord injury (< 1 month) Prophylaxis Regimen: Total Risk Factor Score Risk Level Prophylaxis Regimen 0-1 Low Early ambulation 2 Moderate Order ONE of the following: *Sequential Compression Device (SCD) *Heparin 5000 units SQ BID 3-4 Higher Order ONE of the following medications: *Heparin 5000 units SQ TID *Enoxaparin/Lovenox 40 mg SQ daily (WT < 150 kg, CrCl > 30 mL/min) *Enoxaparin/Lovenox 30 mg SQ daily (WT < 150 kg, CrCl > 10-29 mL/min) *Enoxaparin/Lovenox 30 mg SQ BID (WT < 150 kg, CrCl > 30 mL/min) AND/OR *Sequential Compression Device (SCD) 5 or more Highest Order ONE of the following medications: *Heparin 5000 units SQ TID (Preferred with Epidurals) *Enoxaparin/Lovenox 40 mg SQ daily (WT < 150 kg, CrCl > 30 mL/min) *Enoxaparin/Lovenox 30 mg SQ daily (WT < 150 kg, CrCl > 10-29 mL/min) *Enoxaparin/Lovenox 30 mg SQ BID (WT < 150 kg, CrCl > 30 mL/min) AND *Sequential Compression Device (SCD) Assessment and Plan - Assessment (1) SIRS (systemic inflammatory response syndrome) Code(s): R65.10 - Systemic inflammatory response syndrome (SIRS) of non- infectious origin without acute organ dysfunction Status: Acute (2) DM (diabetes mellitus) Code(s): E11.9 - Type 2 diabetes mellitus without complications Status: Acute (3) Lactic acidosis Code(s): E87.2 - Acidosis Status: Acute - Plan A/P: 1. SIRS: Temp 103.1, HR 115, WBC normal, no obvious source, returned from cruise but no nausea, vomiting or diarrhea. S/p Blood Cultures, Vanc/Cefepime, continue w/ IV Abx, follow up cultures, IVF for hydration. CXR w/ no acute findings, images reviewed by me, U/a negative. 2. Lactic Acidosis: Lactic Acid 3.7, trending down, repeat 2.6, continue w/ IVF, repeat Lactic Acid for trend. 3. DM: Sliding scale w/ Accu-Cheks. Hold Metformin for now in light of SIRS 4. DVT Prophylaxis: SCD/Teds 5. Social work for d/c planning as needed 6. Case discussed w/ ER physician at length, labs/records/imaging reviewed by me.
[2018-05-20] MEDS ORDERED: Vancomycin Consult Pharmacy 1 EACH OTHER SCH (22:00)
[2018-05-21] MEDS: Sod Chloride 0.9% Inj 1,000 ML IV.CONT SCH ×3 (00:25→17:30)
--- NOTE | 2018-05-21 09:07 | P.PNIM ---
Subjective Interval history: f/u; SIRS resting comfortably. says that he's feeling better today- low grade fever earlier. no sob, cough, abdominal pain or nausea. Physical Exam Vital signs: Vital Signs 05/20/18 18:03 05/20/18 19:00 05/20/18 19:33 Temperature 103.5 F H Pulse Rate 124 H 115 H 106 H Respiratory Rate 16 18 Blood Pressure 150/78 H 106/71 Pulse Oximetry 90 L 96 05/20/18 20:08 05/20/18 21:16 05/20/18 23:19 Temperature Pulse Rate 105 H 98 H 97 H Respiratory Rate 18 16 16 Blood Pressure 133/79 120/79 128/78 Pulse Oximetry 94 L 95 93 L 05/21/18 00:00 05/21/18 04:00 Temperature 98.6 F 99.8 F H Pulse Rate 98 H 84 Respiratory Rate 18 18 Blood Pressure 120/62 100/54 L Pulse Oximetry 95 94 L Intake & Output 05/20/18 05/21/18 05/21/18 18:59 06:59 18:59 Weight 89.811 kg Other: # Voids 2 Date of Last Bowel Movement 05/20/18 - Constitutional no acute distress - Routine Neck Exam Present: supple, full ROM - Routine Respiratory Exam Present: CTA bilaterally - Routine Cardiovascular Exam Present: RRR - Routine Abdominal Exam Present: soft - Routine Extremities Exam Comments: no pedal edema. - Routine Neurological Exam Present: alert, oriented X3 Results - Labs CBC & Chem 7: 05/20/18 18:45 05/20/18 18:45 Laboratory Results - last 24 hr 05/20/18 05/20/18 05/20/18 18:45 18:45 18:50 WBC 8.9 RBC 4.48 L Hgb 14.3 Hct 42.4 MCV 94.7 MCH 31.8 MCHC 33.6 RDW 13.8 Plt Count 153 MPV 9.4 Neut % (Auto) 84.6 H Lymph % (Auto) 6.0 L [place] % (Auto) 7.3 Eos % (Auto) 1.7 Baso % (Auto) 0.4 Neut # (Auto) 7.5 Lymph # (Auto) 0.5 L [place] # (Auto) 0.7 Eos # (Auto) 0.1 Baso # (Auto) 0.0 WBC Differential . Differential Comment Auto diff final Sodium 139 Potassium 4.1 Chloride 103 Carbon Dioxide 23.0 Anion Gap 13 BUN 25 H Creatinine 1.19 Estimated GFR 59 L POC Glucose Random Glucose 219 H Lactic Acid 3.7 H Calcium 9.4 Total Bilirubin 1.3 H AST 23 ALT 37 Alkaline Phosphatase 77 Total Protein 7.3 Albumin 3.7 Lipase 82 Urine Color Urine Clarity Urine pH Ur Specific [place] Urine Protein Urine Glucose (UA) Urine Ketones Urine Occult Blood Urine Nitrate Urine Bilirubin Urine Urobilinogen Ur Leukocyte Esterase Urine RBC Urine WBC Hyaline Casts Urine Mucus Micro UA Comment Urine Culture Comments 05/20/18 05/20/18 05/21/18 19:26 19:56 00:13 WBC RBC Hgb Hct MCV MCH MCHC RDW Plt Count MPV Neut % (Auto) Lymph % (Auto) Gillespie % (Auto) Eos % (Auto) Baso % (Auto) Neut # (Auto) Lymph # (Auto) Gillespie # (Auto) Eos # (Auto) Baso # (Auto) WBC Differential Differential Comment Sodium Potassium Chloride Carbon Dioxide Anion Gap BUN Creatinine Estimated GFR POC Glucose 228 H Random Glucose Lactic Acid 2.6 H Calcium Total Bilirubin AST ALT Alkaline Phosphatase Total Protein Albumin Lipase Urine Color Yellow Urine Clarity Clear Urine pH 5.0 Ur Specific [place] 1.013 Urine Protein Negative Urine Glucose (UA) Negative Urine Ketones Negative Urine Occult Blood Negative Urine Nitrate Negative Urine Bilirubin Negative Urine Urobilinogen Less than 2 Ur Leukocyte Esterase Negative Urine RBC 1 Urine WBC 1 Hyaline Casts 3 Urine Mucus Few H Micro UA Comment Culture not ind Urine Culture Comments Culture not ind 05/21/18 07:17 WBC RBC Hgb Hct MCV MCH MCHC RDW Plt Count MPV Neut % (Auto) Lymph % (Auto) [place] % (Auto) Eos % (Auto) Baso % (Auto) Neut # (Auto) Lymph # (Auto) [place]pie # (Auto) Eos # (Auto) Baso # (Auto) WBC Differential Differential Comment Sodium Potassium Chloride Carbon Dioxide Anion Gap BUN Creatinine Estimated GFR POC Glucose 169 H Random Glucose Lactic Acid Calcium Total Bilirubin AST ALT Alkaline Phosphatase Total Protein Albumin Lipase Urine Color Urine Clarity Urine pH Ur Specific [place] Urine Protein Urine Glucose (UA) Urine Ketones Urine Occult Blood Urine Nitrate Urine Bilirubin Urine Urobilinogen Ur Leukocyte Esterase Urine RBC Urine WBC Hyaline Casts Urine Mucus Micro UA Comment Urine Culture Comments Microbiology 05/20/18 18:55 Nasal Wash Influenza Types A,B Antigen - Final Negative for FLU A and B antigen Infection due to influenza A or B cannot be ruled out since the antigen present in the sample may be below the detection limit of the test. - Imaging Impressions Chest X-Ray 05/20/18 18:38 CONCLUSION: Underinflated examination with atelectasis at both lung bases. Otherwise, no acute finding is identified given the underinflation. Assessment and Plan - Assessment (1) SIRS (systemic inflammatory response syndrome) Code(s): R65.10 - Systemic inflammatory response syndrome (SIRS) of non- infectious origin without acute organ dysfunction Status: Acute (2) DM (diabetes mellitus) Code(s): E11.9 - Type 2 diabetes mellitus without complications Status: Acute (3) Lactic acidosis Code(s): E87.2 - Acidosis Status: Acute - Plan 1. SIRS: Temp 103.1, HR 115, WBC normal, no obvious source, returned from cruise but no nausea, vomiting or diarrhea. S/p Blood Cultures, Vanc/Cefepime, continue w/ IV Abx, follow up cultures, IVF for hydration. CXR w/ no acute findings. U/a negative. 2. Lactic Acidosis: Lactic Acid 3.7, trending down, repeat 2.6, continue w/ IVF, repeat Lactic Acid for trend. 3. DM: Sliding scale w/ Accu-Cheks. Hold Metformin for now in light of SIRS 4. DVT Prophylaxis: SCD/Teds Discharge Planning: possible discharge tomorrow- if remains afebrile, clinically stable with negative blood cultures.
[2018-05-21 09:13] LABS: Baso % (Auto) 0.3 % (0.0-2.0); Eos # (Auto) 0.2 th/mm3 (0.0-0.4); Eos % (Auto) 2.1 % (0.0-4.0); Hematocrit 38.8 % (39.0-51.0); Hemoglobin 12.8 gm/dL (13.0-17.0); Lymph # (Auto) 1.1 th/mm3 (1.0-4.8); Lymph % (Auto) 12.9 % (9.0-44.0); Mean Corpuscular HGB Conc 33.1 % (32.0-36.0); Mean Corpuscular Hemoglobin 31.8 pg (27.0-34.0); Mean Corpuscular Volume 96.2 fL (80.0-100.0); Mean Platelet Volume 9.4 fL (7.0-11.0); Mono # (Auto) 0.7 th/mm3 (0.0-0.9); Mono % (Auto) 7.7 % (0.0-8.0); Neut # (Auto) 6.5 th/mm3 (1.8-7.7); Platelet Count 150 th/mm3 (150-450); Red Blood Count 4.03 mil/mm3 (4.50-5.90); Red Cell Distribution Width 13.6 % (11.6-17.2); White Blood Count 8.5 th/mm3 (4.0-11.0)
[2018-05-21] MEDS: Pantoprazole Sodium 20 MG DR Tablet PO SCH (09:23)
[2018-05-21] MEDS: Finasteride 5 MG Tablet PO SCH (09:23)
[2018-05-21] MEDS: Senna/Docusate Sodium 8.6/50 MG Tablet PO SCH ×2 (09:24→21:23)
[2018-05-21] MEDS: Gabapentin 300 MG Capsule PO SCH ×3 (09:24→17:27)
[2018-05-21 09:34] LABS: Albumin 3.1 g/dL (3.4-5.0); Anion Gap 9 meq/L (5-15); Aspartate Aminotransferase 24 U/L (15-37); Blood Urea Nitrogen 19 mg/dL (7-18); Calcium 8.2 mg/dL (8.5-10.1); Carbon Dioxide 23.5 meq/L (21.0-32.0); Chloride 108 meq/L (98-107); Glomerular Filtration Rate 78 mL/min (>89); Glucose,Random 197 mg/dL (74-106); Potassium 4.1 meq/L (3.5-5.1); Sodium 140 meq/L (136-145)
[2018-05-21 09:36] LABS: Alanine Aminotransferase 32 U/L (12-78); Alkaline Phosphatase 62 U/L (45-117); Total Protein 6.3 g/dL (6.4-8.2)
[2018-05-21] MEDS: Insulin NovoLOG Aspart Correctional Sugar Inj SQ SCH ×4 (09:49→22:29)
[2018-05-21] MEDS ORDERED: Dextrose 50% in Water 50 ML Vial IV.PUSH PRN (12:03)
[2018-05-21] MEDS: Vancomycin Inj 1,250 MG in Sodium Chlor 0.9% Inj 250 ML IV.SIG SCH (13:16)
--- NOTE | 2018-05-21 17:38 | ECG ---
Date Performed: 05/20/2018 Time Performed: 19:20:53 PTAGE: 78 years EKG: SINUS TACHYCARDIA MARKED LEFT AXIS DEVIATION LOW QRS VOLTAGE IN PRECORDIAL LEADS LEFT VENTR ICULAR HYPERTROPHY AND ST-T CHANGE POSSIBLE ANTERIOR MYOCARDIAL INFARCTION ABNORMAL ECG PREVIOUS TRACING : 12/26/2016 09.59 COMPARED TO THE PREVIOUS TRACING SINUS TACHYCARDIAS NEW DOCTOR: Efrain Viveros Interpretating Date/Time 05/21/2018 17:37:12
[2018-05-21] MEDS ORDERED: Amitriptyline 10 MG Tablet PO SCH (21:00)
[2018-05-22] MEDS: Senna/Docusate Sodium 8.6/50 MG Tablet PO SCH (09:13)
[2018-05-22] MEDS: Finasteride 5 MG Tablet PO SCH (09:13)
[2018-05-22] MEDS: Gabapentin 300 MG Capsule PO SCH ×2 (09:13→12:30)
[2018-05-22] MEDS: Pantoprazole Sodium 20 MG DR Tablet PO SCH (09:13)
[2018-05-22] MEDS: Insulin NovoLOG Aspart Correctional Sugar Inj SQ SCH ×2 (09:14→12:30)
[2018-05-22] MEDS: Vancomycin Inj 1,250 MG in Sodium Chlor 0.9% Inj 250 ML IV.SIG SCH (09:15)
--- NOTE | 2018-05-22 12:22 | P.DS ---
Date of admission: 05/20/18 21:34 Primary care physician: UNKNOWN Brief History from admission: This is a 78-year-old male with PMH of HTN, DM, Bladder CA, Peripheral Neuropathy and Reflux who presented to ER with complaints of generalized fatigue and fever starting earlier today. Pt states he'd been feeling fine, played poker with some friends but had significant weakness when he got home. Denies nausea, vomiting, diarrhea, cough, chest pain or SOB. Reports he returned from cruise w/ his but denies any symptoms until today. On arrival, Temp 103.1, BP 106/71, HR 115, O2 sat 95% on 3L NC. CBC essentially unremarkable. Chemistry unremarkable except for BUN 25, GFR 59. Lactic Acid 3.7. UA negative. CXR with no acute findings. Flu negative. S/p Blood Cultures, Vanc/Cefepime. DS: Medications - Discharge Medications Prescriptions: Lactobacillus acidophilus 500 mmu cells PO TID 10 Days #30 cap levofloxacin [Levaquin] 500 mg PO DAILY #8 tab DS: Summary Hospital Course: Mr. Slater is a 88-year-old male. He came to the hospital due to fatigue and fever. White blood cell count was within normal limits and has remained within normal limits during the stay. Blood cultures were obtained and are now negative at 48 hours. Patient has full resolution of his symptoms. In the hospital he has been treated with cefepime and vancomycin. Etiology for his illness is suspicious for viral cause. At this point, without symptoms, he is stable for transition to p.o. treatments and discharge. I will continue to monitor blood cultures and keep patient informed of these. Antibiotics are selected to continue for 8 more days empirically, though the primary suspicion remains virus. Medically stable and cleared for discharge home today. - Time Spent with Patient Total time spent providing and/or coordinating discharge services: - Quality: VTE Deep Vein Thrombosis/Pulmonary Embolism Present on Admission: No Exam Vital signs: Vital Signs 05/21/18 16:00 05/21/18 18:15 05/21/18 20:00 Temperature 97.8 F 97.9 F Pulse Rate 70 68 Respiratory Rate 18 16 Blood Pressure 114/64 141/64 H Pulse Oximetry 94 L 94 L 96 05/21/18 22:09 05/22/18 02:40 05/22/18 04:00 Temperature 98.1 F 97.9 F Pulse Rate 89 65 Respiratory Rate 18 19 16 Blood Pressure 130/64 124/70 Pulse Oximetry 95 95 05/22/18 08:00 05/22/18 08:18 05/22/18 12:00 Temperature 98.7 F 98.7 F Pulse Rate 64 67 Respiratory Rate 16 16 16 Blood Pressure 132/64 129/70 Pulse Oximetry 95 95 Intake & Output 05/21/18 05/22/18 05/22/18 18:59 06:59 18:59 Intake Total 1100 / 1100 362.5 / 362.5 Balance 1100 / 1100 362.5 / 362.5 Intake: IV 1100 / 1100 362.5 / 362.5 NS Inj 1,000 ML @ 100 mls/hr IV 1000 / 1000 .CONT .Q10H [facility] Rx#:[id number] Maxipime Inj 1,000 MG In NS Inj 100 / 100 100 / 100 100 ML @ 200 mls/hr IV.SIG Q12H [facility] Rx#:[id number] Vancomycin Inj 1,250 MG In NS 0 / 0 262.5 / 262.5 Inj 250 ML @ 250 mls/hr IV.SIG Q18H [facility] Rx#:[id number] Other: # Voids 5 Date of Last Bowel Movement 05/20/18 05/20/18 05/22/18 # Bowel Movements 1 Results Procedures completed during hospitalization: none Labs on day of discharge: Labs from last 24 hours 05/22/18 05/22/18 05/21/18 11:40 07:10 21:23 POC Glucose 172 H 180 H 206 H 05/21/18 16:37 POC Glucose 185 H Preliminary micro results at discharge 05/20/18 18:45 Aerobic Blood Culture - Preliminary Blood - Peripheral No growth in 2 days Anaerobic Blood Culture - Preliminary No growth in 2 days 05/20/18 18:56 Aerobic Blood Culture - Preliminary Blood - Peripheral No growth in 2 days Anaerobic Blood Culture - Preliminary No growth in 2 days - Impressions ITS Impressions Chest X-Ray 05/20/18 18:38 CONCLUSION: Underinflated examination with atelectasis at both lung bases. Otherwise, no acute finding is identified given the underinflation. Discharge Plan - Discharge Disposition Patient Disposition: 01 Discharge Home - Discharge Condition Condition: Stable - Discharge Details Anticipated Discharge Date: 05/22/18 - Physicians Team Primary Care Provider: UNKNOWN, Attending Provider: Isaiah Sabillon
[2018-05-23] MEDS ORDERED: Pharmacy Ordered Lab Info OTHER ONE (01:45)
== END 2018-05-22 15:27 | disposition home or self-care (01) ==
LOC: NEPC 17:46 → NEDA 21:34 → N05 23:37
PROVIDERS: ADMIT Hospitalist; ATTEND Hospitalist

== ENCOUNTER 2018-05-27 17:07 | Inpatient (IN) ==
--- NOTE | 2018-05-27 17:53 | ED ---
HPI General Chief Complaint: Fever Stated Complaint: Vomiting Time Seen by Provider: 05/27/18 17:28 Source: patient Mode of arrival: ambulatory Limitations: no limitations History of Present Illness HPI Narrative: Patient returns complaining of fever, no vomiting or nausea this time around however the patient denies having any cough runny nose sore throat chest pain abdominal pain nausea vomiting or diarrhea symptoms. Patient also denies being around any sick contacts. Patient states that he was evaluated previously and did not have a diagnosis or source of infection found the last time he was here a few days ago. Per patient he continues to be on Levaquin while at home. Despite being on this antibiotic the patient returns with fever MD complaint: fever Temperature Source: oral Associated symptoms: chills Relieving factors: nothing Exacerbating factors: nothing Treatments prior to arrival fever: antibiotics Related Data Home Medications Medication Instructions Recorded Confirmed amitriptyline 20 mg PO HS 05/20/18 05/27/18 aspirin [Aspir-81] 81 mg PO DAILY 05/20/18 05/27/18 atorvastatin 10 mg PO DAILY 05/20/18 05/27/18 cholecalciferol (vitamin D3) 2,000 unit PO DAILY 05/20/18 05/27/18 [Vitamin D3] clonazepam 0.5 mg PO BID PRN 05/20/18 05/27/18 finasteride 5 mg PO DAILY 05/20/18 05/27/18 gabapentin 600 mg PO TID 05/20/18 05/27/18 hydrocodone-acetaminophen 1 tab PO Q6H PRN 05/20/18 05/27/18 lisinopril 5 mg PO DAILY 05/20/18 05/27/18 magnesium 500 mg PO DAILY 05/20/18 05/27/18 metformin 1,000 mg PO BID 05/20/18 05/27/18 omeprazole 20 mg PO DAILY 05/20/18 05/27/18 tamsulosin 0.4 mg PO DAILY 05/20/18 05/27/18 Previous Rx's Medication Instructions Recorded Lactobacillus acidophilus 500 mmu cells PO TID 10 Days #30 05/22/18 cap levofloxacin [Levaquin] 500 mg PO DAILY #8 tab 05/22/18 Allergies Allergy/AdvReac Type Severity Reaction Status Date / Time iodine Allergy Severe Hives Verified 05/27/18 17:43 potassium iodide Allergy Severe Hives Verified 05/27/18 17:43 povidone-iodine Allergy Severe Hives Verified 05/27/18 17:43 sodium iodide Allergy Severe Hives Verified 05/27/18 17:43 sodium iodide Allergy Severe Hives Verified 05/27/18 17:43 venlafaxine Allergy Unknown Hives Verified 05/27/18 17:43 tramadol AdvReac Unknown Hives Verified 05/27/18 17:43 Review of Systems Except as stated in HPI: all other systems reviewed are negative PMFSH History History Provided By: Patient Medical History Medical History Acid reflux (Acute) Bladder cancer (Acute) Diabetes (Acute) Enlarged prostate (Acute) Fatty liver (Acute) Gall stones (Acute) High blood pressure (Acute) High cholesterol (Acute) Neuropathy (Acute) Surgical History Surgical History H/O eye surgery (Acute) H/O neck surgery (Acute) Social History Social History Substance History: No History of Abuse Second Hand Smoke Exposure: No Smoking Status: Former smoker How Often Do You Have a Drink Containing Alcohol: Monthly or less Recent Out of Country Travel within the Last 8 Weeks: No Exam Narrative Exam Narrative: GENERAL: Elderly male in mild apparent distress. SKIN: Warm and dry. No apparent rash noted throughout skin exam HEAD: Atraumatic. Normocephalic. EYES: Pupils equal and round. No scleral icterus. No injection or drainage. ENT: No nasal bleeding or discharge. Mucous membranes pink and moist. NECK: Trachea midline. No JVD. CARDIOVASCULAR: Tachycardic rate regular rhythm, no murmurs ,rubs or gallops RESPIRATORY: No accessory muscle use. Clear to auscultation. Breath sounds equal bilaterally. GASTROINTESTINAL: Abdomen soft, non-tender, nondistended. No rebound or guarding MUSCULOSKELETAL: Extremities without clubbing, cyanosis, or edema. No obvious deformities. NEUROLOGICAL: Awake and alert. No obvious cranial nerve deficits. Motor grossly within normal limits. Five out of 5 muscle strength in the arms and legs. Normal speech. PSYCHIATRIC: Appropriate mood and affect; insight and judgment normal. Course Consultations Consultation #1: Dr. Campbell Time: 22:27 Initial Documented Vital Signs Temperature 102.4 F H 05/27/18 17:14 Pulse Rate 123 H 05/27/18 17:14 Respiratory Rate 20 05/27/18 17:14 Blood Pressure 140/76 05/27/18 17:14 Pulse Oximetry 92 L 05/27/18 17:14 Last Documented Vital Signs Temperature 100.4 F H 05/27/18 17:45 Pulse Rate 102 H 05/27/18 20:24 Respiratory Rate 16 05/27/18 20:24 Blood Pressure 110/58 L 05/27/18 20:24 Pulse Oximetry 94 L 05/27/18 20:24 Medical Decision Making MDM Narrative Medical decision making narrative: Patient CBC does not show any leukocytosis but does show a left shift of 86% neutrophilia, normal platelet count, no evidence of any anemia. Coagulation profile is within normal limits Chemistry as of 1849 pending Medical Records Medical records reviewed: Yes I reviewed the patient's medical records. Patient was admitted and evaluated recently May 20 admitted for fever of unknown origin, sirs, was given vancomycin and Maxipime for a few days with resolution of fever however never finding the actual source. Patient was discharged on Levaquin and the patient returns now with same symptoms of fever states that he does not have any vomiting or nausea this time This patient was signed out to me at 7 PM pending evaluation for fever of unknown origin. CT suggest pneumonia. I have given him Zosyn. Lab Data Lab results reviewed: Yes I reviewed the patient's lab results. Result diagrams: 05/27/18 17:45 05/27/18 17:45 Lab Results 05/27/18 05/27/18 05/27/18 Range/Units 17:45 17:45 17:45 WBC 10.5 (4.0-11.0) th/mm3 RBC 4.28 L (4.50-5.90) mil/mm3 Hgb 13.8 (13.0-17.0) gm/dL Hct 40.5 (39.0-51.0) % MCV 94.6 (80.0-100.0) fL MCH 32.2 (27.0-34.0) pg MCHC 34.1 (32.0-36.0) % RDW 13.6 (11.6-17.2) % Plt Count 176 (150-450) th/mm3 MPV 9.2 (7.0-11.0) fL Neut % (Auto) 86.0 H (16.0-70.0) % Lymph % (Auto) 8.9 L (9.0-44.0) % Haakon % (Auto) 3.8 (0.0-8.0) % Eos % (Auto) 1.1 (0.0-4.0) % Baso % (Auto) 0.2 (0.0-2.0) % Neut # (Auto) 9.0 H (1.8-7.7) th/mm3 Lymph # (Auto) 0.9 L (1.0-4.8) th/mm3 Haakon # (Auto) 0.4 (0.0-0.9) th/mm3 Eos # (Auto) 0.1 (0.0-0.4) th/mm3 Baso # (Auto) 0.0 (0.0-0.2) th/mm3 WBC Differential . Differential Comment Auto diff final PT 9.8 (9.8-11.6) sec INR 1.0 Ratio APTT 24.5 (24.3-30.1) sec Puncture Site Patient Temperature O2 Saturation (90-100) % ABG pH (7.380-7.420) ABG pCO2 (38-42) mmHg ABG pO2 (61-120) mmHg ABG HCO3 (22-26) mmol/L ABG O2 Content (12.0-20.0) Vol % ABG Base Excess (-2-2) mmol/L ABG Methemoglobin (0-2) % Thomas Test Hemoglobin (12.0-16.0) G/DL Carboxyhemoglobin (0-4) % O2 Delivery Device Liter Flow L/M Inspired O2 % Critical Value Sodium 143 (136-145) meq/L Potassium 4.0 (3.5-5.1) meq/L Chloride 107 (98-107) meq/L Carbon Dioxide 22.9 (21.0-32.0) meq/L Anion Gap 13 (5-15) meq/L BUN 20 H (7-18) mg/dL Creatinine 1.00 (0.60-1.30) mg/dL Estimated GFR 73 L (>89) mL/min Random Glucose 172 H (74-106) mg/dL Lactic Acid (0.4-2.0) mmol/L Calcium 9.3 (8.5-10.1) mg/dL Total Bilirubin 0.7 (0.2-1.0) mg/dL AST 34 (15-37) U/L ALT 47 (12-78) U/L Alkaline Phosphatase 78 (45-117) U/L Total Protein 6.9 D (6.4-8.2) g/dL Albumin 3.5 (3.4-5.0) g/dL Urine Color (Yellw/Straw) Urine Clarity (Clear) Urine pH (5.0-8.5) Ur Specific [place] (1.002-1.035) Urine Protein (Neg-Trace) mg/dL Urine Glucose (UA) (Negative) mg/dL Urine Ketones (Negative) mg/dL Urine Occult Blood (Negative) Urine Nitrate (Negative) Urine Bilirubin (Negative) Urine Urobilinogen (Less than 2) mg/dL Ur Leukocyte Esterase (Negative) Urine WBC (0-5) /hpf Ur Squamous Epith Cells (0-5) /hpf Micro UA Comment Urine Culture Comments 05/27/18 05/27/18 05/27/18 Range/Units 20:50 20:50 21:00 WBC (4.0-11.0) th/mm3 RBC (4.50-5.90) mil/mm3 Hgb (13.0-17.0) gm/dL Hct (39.0-51.0) % MCV (80.0-100.0) fL MCH (27.0-34.0) pg MCHC (32.0-36.0) % RDW (11.6-17.2) % Plt Count (150-450) th/mm3 MPV (7.0-11.0) fL Neut % (Auto) (16.0-70.0) % Lymph % (Auto) (9.0-44.0) % Haakon % (Auto) (0.0-8.0) % Eos % (Auto) (0.0-4.0) % Baso % (Auto) (0.0-2.0) % Neut # (Auto) (1.8-7.7) th/mm3 Lymph # (Auto) (1.0-4.8) th/mm3 Haakon # (Auto) (0.0-0.9) th/mm3 Eos # (Auto) (0.0-0.4) th/mm3 Baso # (Auto) (0.0-0.2) th/mm3 WBC Differential Differential Comment PT (9.8-11.6) sec INR Ratio APTT (24.3-30.1) sec Puncture Site Right radial Patient Temperature 98.6 O2 Saturation 92 (90-100) % ABG pH 7.45 H (7.380-7.420) ABG pCO2 33 L (38-42) mmHg ABG pO2 77 (61-120) mmHg ABG HCO3 22 (22-26) mmol/L ABG O2 Content 16.1 (12.0-20.0) Vol % ABG Base Excess -1.2 (-2-2) mmol/L ABG Methemoglobin 2.0 (0-2) % Thomas Test Present Hemoglobin 12.4 (12.0-16.0) G/DL Carboxyhemoglobin 0.6 (0-4) % O2 Delivery Device Nasal cannula Liter Flow 2.00 L/M Inspired O2 21 % Critical Value No Sodium (136-145) meq/L Potassium (3.5-5.1) meq/L Chloride (98-107) meq/L Carbon Dioxide (21.0-32.0) meq/L Anion Gap (5-15) meq/L BUN (7-18) mg/dL Creatinine (0.60-1.30) mg/dL Estimated GFR (>89) mL/min Random Glucose (74-106) mg/dL Lactic Acid 2.9 H (0.4-2.0) mmol/L Calcium (8.5-10.1) mg/dL Total Bilirubin (0.2-1.0) mg/dL AST (15-37) U/L ALT (12-78) U/L Alkaline Phosphatase (45-117) U/L Total Protein (6.4-8.2) g/dL Albumin (3.4-5.0) g/dL Urine Color Yellow (Yellw/Straw) Urine Clarity Clear (Clear) Urine pH 5.0 (5.0-8.5) Ur Specific [place] 1.011 (1.002-1.035) Urine Protein Negative (Neg-Trace) mg/dL Urine Glucose (UA) Negative (Negative) mg/dL Urine Ketones Negative (Negative) mg/dL Urine Occult Blood Negative (Negative) Urine Nitrate Negative (Negative) Urine Bilirubin Negative (Negative) Urine Urobilinogen Less than 2 (Less than 2) mg/dL Ur Leukocyte Esterase Negative (Negative) Urine WBC 1 (0-5) /hpf Ur Squamous Epith Cells <1 (0-5) /hpf Micro UA Comment Culture not ind Urine Culture Comments Culture not ind Imaging Data Radiologist's impression: Chest CT 05/27/18 17:43 CONCLUSION: 1. No pulmonary or mediastinal masses seen. 2. A few small areas of nonconsolidative opacity in the right lung may represent developing infiltrate. Recommend follow-up exam to assure resolution. Pulmonary Perfusion Imaging 05/27/18 17:43 CONCLUSION: 1. Low probability pulmonary embolism. Discharge Plan Discharge Disposition Patient Disposition: 30 Still Patient Discharge Condition Condition: Stable Discharge Details Diagnosis: SIRS (systemic inflammatory response syndrome), Pneumonia Physicians Team ED Provider: Nancy Mathews Rxs /Orders / Referrals /Forms Prescriptions: No Action gabapentin 600 mg Tablet 600 mg PO TID RF: 0 atorvastatin 10 mg Tablet 10 mg PO DAILY RF: 0 aspirin [Aspir-81] 81 mg Tablet,Delayed Release (Dr/Ec) 81 mg PO DAILY RF: 0 tamsulosin 0.4 mg Capsule,Extended Release 24hr 0.4 mg PO DAILY RF: 0 hydrocodone-acetaminophen 7.5-325 mg Tablet 1 tab PO Q6H PRN (Reason: Pain, Mild) RF: 0 omeprazole 20 mg Capsule,Delayed Release(Dr/Ec) 20 mg PO DAILY RF: 0 lisinopril 5 mg Tablet 5 mg PO DAILY RF: 0 metformin 1,000 mg Tablet 1,000 mg PO BID RF: 0 clonazepam 0.5 mg Tablet 0.5 mg PO BID PRN (Reason: Anxiety) RF: 0 amitriptyline 10 mg Tablet 20 mg PO HS RF: 0 magnesium 250 mg Tablet 500 mg PO DAILY RF: 0 finasteride 5 mg Tablet 5 mg PO DAILY RF: 0 cholecalciferol (vitamin D3) [Vitamin D3] 2,000 unit Capsule 2,000 unit PO DAILY RF: 0 levofloxacin [Levaquin] 500 mg Tablet 500 mg PO DAILY Qty: 8 RF: 0 Lactobacillus acidophilus Capsule 500 mmu cells PO TID 10 Days Qty: 30 RF: 0 Status ED Status: With Doctor
[2018-05-27 18:31] LABS: Baso % (Auto) 0.2 % (0.0-2.0); Eos # (Auto) 0.1 th/mm3 (0.0-0.4); Eos % (Auto) 1.1 % (0.0-4.0); Hematocrit 40.5 % (39.0-51.0); Hemoglobin 13.8 gm/dL (13.0-17.0); Lymph # (Auto) 0.9 th/mm3 (1.0-4.8); Lymph % (Auto) 8.9 % (9.0-44.0); Mean Corpuscular HGB Conc 34.1 % (32.0-36.0); Mean Corpuscular Hemoglobin 32.2 pg (27.0-34.0); Mean Corpuscular Volume 94.6 fL (80.0-100.0); Mean Platelet Volume 9.2 fL (7.0-11.0); Mono # (Auto) 0.4 th/mm3 (0.0-0.9); Mono % (Auto) 3.8 % (0.0-8.0); Platelet Count 176 th/mm3 (150-450); Red Blood Count 4.28 mil/mm3 (4.50-5.90); Red Cell Distribution Width 13.6 % (11.6-17.2); White Blood Count 10.5 th/mm3 (4.0-11.0)
[2018-05-27 18:38] LABS: Activated Partial Thrombo Time 24.5 sec (24.3-30.1); Prothrombin Time 9.8 sec (9.8-11.6)
[2018-05-27] MEDS ORDERED: Sod Chloride 0.9% Inj 1,000 ML IV.SIG ONE (18:45)
[2018-05-27 18:52] LABS: Albumin 3.5 g/dL (3.4-5.0); Anion Gap 13 meq/L (5-15); Aspartate Aminotransferase 34 U/L (15-37); Blood Urea Nitrogen 20 mg/dL (7-18); Calcium 9.3 mg/dL (8.5-10.1); Carbon Dioxide 22.9 meq/L (21.0-32.0); Chloride 107 meq/L (98-107); Glomerular Filtration Rate 73 mL/min (>89); Glucose,Random 172 mg/dL (74-106); Sodium 143 meq/L (136-145)
[2018-05-27 18:54] LABS: Alanine Aminotransferase 47 U/L (12-78)
[2018-05-27 18:56] LABS: Alkaline Phosphatase 78 U/L (45-117); Total Protein 6.9 g/dL (6.4-8.2)
--- NOTE | 2018-05-27 19:38 | NM ---
EXAM DATE: 05/27/2018 7:28 PM EDT AGE/SEX: 78 years / Male INDICATIONS: Short of breath. CLINICAL DATA: This is the patient's initial encounter. Patient reports that signs and symptoms have been present for 1 day and indicates a pain score of 2/10. MEDICAL/SURGICAL HISTORY: Hypertension. Carcinoma, bladder. . Neck surgery. COMPARISON: [facility], CHEST 1V SINGLE AP, 05/20/2018. . DOSE: 2.2 mCi Tc99m DTPA aerosol 8.2 mCi Tc99m MAA IV TECHNIQUE: Following five minutes of tidal breathing of DTPA aerosol, planar images of the lungs wer e performed in eight projections. The patient was then injected with MAA, and eight-view perfusion s can was performed. FINDINGS: There is a homogeneous pattern of aerosol delivery to the periphery of both lungs. No focal ventilat ory defects are seen. There is mild central deposition of aerosol distribution of obstructive airways disease. The perfusion lung scan demonstrates a homogenous pattern of uptake in both lungs. No segmental or s ubsegmental defects are seen. CONCLUSION: 1. Low probability pulmonary embolism. Electronically signed by: Sundar Estrada MD 05/27/2018 7:37 PM EDT
--- NOTE | 2018-05-27 20:18 | CT ---
EXAM DATE: 05/27/2018 8:05 PM EDT AGE/SEX: 78 years / Male INDICATIONS: Shortness of breath. Evaluate for mass. CLINICAL DATA: This is the patient's initial encounter. Patient reports that signs and symptoms have been present for 1 day and indicates a pain score of 3/10. MEDICAL/SURGICAL HISTORY: Diabetes. Bladder cancer. None. RADIATION DOSE: 15.03 CTDI (mGy) COMPARISON: [facility], CT CHEST W/O CONTRAST, 09/26/2014. . TECHNIQUE: Multiple contiguous axial images were obtained through the chest without contrast. Image s were obtained in suspended respiration using multiple row detector helical technique. Using automa loreto exposure control and adjustment of the mA and/or kV according to patient size, radiation dose was kept as low as reasonably achievable to obtain optimal diagnostic quality images. DICOM format imag e data is available electronically for review and comparison. FINDINGS: Lungs: There are a few scattered areas of nonconsolidative opacity, located posterior right upper michel g, and in the posterior lateral right lower lung which could represent developing areas of infiltrate . There is left basilar atelectasis. No consolidative infiltrates seen. Mediastinum: There is good visualization of the great vessels of the middle mediastinum. No evidenc e of mediastinal or hilar adenopathy/mass. Coronary artery calcifications. Pleurae: No evidence of focal thickening or pleural effusion. Axillae: Unremarkable. Bony Structures: Unremarkable. Miscellaneous: The supraclavicular region is unremarkable. CONCLUSION: 1. No pulmonary or mediastinal masses seen. 2. A few small areas of nonconsolidative opacity in the right lung may represent developing infiltra te. Recommend follow-up exam to assure resolution. Electronically signed by: Sundar Estrada MD 05/27/2018 8:17 PM EDT
[2018-05-27] MEDS ORDERED: Piperacil/Tazo 3.375 GM Premix 50 ML IV.SIG ONE (20:29)
[2018-05-27 21:13] LABS: ABG Base Excess -1.2 mmol/L (-2-2); ABG PCO2 33 mmHg (38-42); ABG PO2 77 mmHg (61-120)
[2018-05-27 21:29] LABS: Bilirubin,Urine Negative (Negative); Clarity,Urine Clear (Clear); Color,Urine Yellow (Yellw/Straw); Glucose,Urine (UA) Negative (Negative); Leukocyte Esterase,Urine Negative (Negative); Nitrite,Urine Negative (Negative); Specific Gravity,Urine 1.011 (1.002-1.035); Squamous Epithelial Cell,Urine <1 /hpf (0-5)
[2018-05-27] MEDS ORDERED: clonazePAM 0.5 MG Tablet PO PRN (22:47)
[2018-05-27] MEDS ORDERED: Acetaminophen 325 MG Tablet PO PRN (22:49)
[2018-05-27] MEDS ORDERED: Bisacodyl 10 MG Supp RECTAL PRN (22:49)
--- NOTE | 2018-05-27 22:50 | P.HPIM ---
History of Present Illness Primary Care Physician: Augustine Barrios History of Present Illness: This is a 78-year-old male with PMH of HTN, DM, Bladder CA and Peripheral Neuropathy who presented to the ER with fever. Recent admit 05/20-05/22/18 for similar complaints, work up negative at that time, Blood Cultures negative, U/a negative, s/p Vanc/Cefepime for SIRS and was d/c'd on Levaquin, compliant w/ meds. Returns now w/ ongoing fever. Denies abdominal pain, nausea, vomiting, diarrhea, cough or SOB. No sick contacts. On arrival, BP 129/73, HR 120, O2 sat 91% on RA, Temp 100.4. WBC normal. INR 1.0. BUN 20. Lactic Acid 2.9. UA negative. CT Chest with few small areas of non-consolidative opacity, likely developing infiltrate. V/Q Scan low probability for PE. S/p Zosyn in ER. - Diagnosis (1) Sepsis (2) PNA (pneumonia) (3) DM (diabetes mellitus) Inpatient Certification: I certify that the inpatient services were ordered in accordance with Medicare regulations governing the order. This includes certification that hospital inpatient services are reasonable and necessary and in the case of services not specified as inpatient-only under 42 CFR 419.22(n), that they are appropriately provided as inpatient services in accordance to with the 2-midnight benchmark under 43 CFR 412.3(e) Estimated Total Length of Stay (Days): 2 Plans for Post Hospital Care: Not yet determined Review of Systems All other systems reviewed negative except as stated in [facility] - History History Provided By: Patient - Medical History Medical History: Medical History (Last Reviewed 05/27/18 @ 17:45 by Derrek Lyons) Acid reflux Bladder cancer Diabetes Enlarged prostate Fatty liver Gall stones High blood pressure High cholesterol Neuropathy - Surgical History Surgical History: Surgical History (Last Reviewed 05/27/18 @ 17:45 by Derrek Lyons) H/O eye surgery H/O neck surgery - Tobacco History Second Hand Smoke Exposure: No Smoking Status: Former smoker - Alcohol History How Often Do You Have a Drink Containing Alcohol: Monthly or less - Substance Use History Substance History: No History of Abuse - Travel History Recent Travel Out of the Country Within the Last 8 Weeks: No - Immunization History Tetanus Immunization: Unsure Hx Influenza Vaccine This Season: Yes Medications and Allergies Allergies Allergy/AdvReac Type Severity Reaction Status Date / Time iodine Allergy Severe Hives Verified 05/27/18 17:43 potassium iodide Allergy Severe Hives Verified 05/27/18 17:43 povidone-iodine Allergy Severe Hives Verified 05/27/18 17:43 sodium iodide Allergy Severe Hives Verified 05/27/18 17:43 sodium iodide Allergy Severe Hives Verified 05/27/18 17:43 venlafaxine Allergy Unknown Hives Verified 05/27/18 17:43 tramadol AdvReac Unknown Hives Verified 05/27/18 17:43 Home Medications Medication Instructions Recorded Confirmed Type amitriptyline 20 mg PO HS 05/20/18 05/27/18 History aspirin [Aspir-81] 81 mg PO DAILY 05/20/18 05/27/18 History atorvastatin 10 mg PO DAILY 05/20/18 05/27/18 History cholecalciferol (vitamin D3) 2,000 unit PO DAILY 05/20/18 05/27/18 History [Vitamin D3] clonazepam 0.5 mg PO BID PRN 05/20/18 05/27/18 History finasteride 5 mg PO DAILY 05/20/18 05/27/18 History gabapentin 600 mg PO TID 05/20/18 05/27/18 History hydrocodone-acetaminophen 1 tab PO Q6H PRN 05/20/18 05/27/18 History lisinopril 5 mg PO DAILY 05/20/18 05/27/18 History magnesium 500 mg PO DAILY 05/20/18 05/27/18 History metformin 1,000 mg PO BID 05/20/18 05/27/18 History omeprazole 20 mg PO DAILY 05/20/18 05/27/18 History tamsulosin 0.4 mg PO DAILY 05/20/18 05/27/18 History Exam Vital signs: Vital Signs 05/27/18 17:14 05/27/18 17:45 05/27/18 18:18 Temperature 102.4 F H 100.4 F H Pulse Rate 123 H 120 H Respiratory Rate 20 23 Blood Pressure 140/76 129/73 Pulse Oximetry 92 L 91 L 91 L 05/27/18 20:24 Temperature Pulse Rate 102 H Respiratory Rate 16 Blood Pressure 110/58 L Pulse Oximetry 94 L Intake & Output 07/19/18 07/19/18 07/20/18 06:59 18:59 06:59 Weight 89.811 kg Narrative: PE: GENERAL: Very pleasant elderly white male in no acute distress. at bedside. On NC. HEENT: PERRLA, EOMI. No scleral icterus or conjunctival pallor. No lid lag or facial droop. CARDIOVASCULAR: Regular rate and rhythm. No obvious murmurs to auscultation. No chest tenderness to palpation. RESPIRATORY: No obvious rhonchi or wheezing. Clear to auscultation. Breath sounds equal bilaterally. GASTROINTESTINAL: Abdomen soft, non-tender, nondistended. BS normal. MUSCULOSKELETAL: Extremities without clubbing, cyanosis, or edema. No obvious deformities. NEUROLOGICAL: Awake, alert and oriented x4. No focal neurologic deficits. Moving both upper and lower extremities spontaneously. Results - Labs CBC & Chem 7: 05/27/18 17:45 05/27/18 17:45 Labs: Short CBC 05/27/18 Range/Units 17:45 WBC 10.5 (4.0-11.0) th/mm3 Hgb 13.8 (13.0-17.0) gm/dL Hct 40.5 (39.0-51.0) % Plt Count 176 (150-450) th/mm3 BMP 05/27/18 17:45 Sodium 143 Potassium 4.0 Chloride 107 Carbon Dioxide 22.9 BUN 20 H Creatinine 1.00 Calcium 9.3 Liver Function 05/27/18 Range/Units 17:45 Total Bilirubin 0.7 (0.2-1.0) mg/dL AST 34 (15-37) U/L ALT 47 (12-78) U/L Alkaline Phosphatase 78 (45-117) U/L Albumin 3.5 (3.4-5.0) g/dL Urine 05/27/18 Range/Units 20:50 Urine Color Yellow (Yellw/Straw) Urine Clarity Clear (Clear) Urine pH 5.0 (5.0-8.5) Ur Specific [place] 1.011 (1.002-1.035) Urine Protein Negative (Neg-Trace) mg/dL Urine Glucose (UA) Negative (Negative) mg/dL - Imaging Impressions Chest CT 05/27/18 17:43 CONCLUSION: 1. No pulmonary or mediastinal masses seen. 2. A few small areas of nonconsolidative opacity in the right lung may represent developing infiltrate. Recommend follow-up exam to assure resolution. Pulmonary Perfusion Imaging 05/27/18 17:43 CONCLUSION: 1. Low probability pulmonary embolism. Caprini VTE Risk Assessment Caprini VTE Risk Assessment: No/Low Risk (score <= 1) Caprini Risk Assessment Model: Point Value = 1 Point Value = 2 Point Value = 3 Point Value = 5 Age 41-60 Minor surgery BMI > 25 kg/m2 Swollen legs Varicose veins or History of unexplained or recurrent spontaneous Oral contraceptives or hormone replacement Sepsis (< 1 month) Serious lung disease, including pneumonia (< 1 month) Abnormal pulmonary function Acute myocardial infarction Congestive heart failure (< 1 month) History of inflammatory bowel disease Medical patient at bed rest Age 61-74 Arthroscopic surgery Major open surgery (> 45 min) Laparoscopic surgery (> 45 min) Malignancy Confined to bed (> 72 hours) Immobilizing plaster cast Central venous access Age >= 75 History of VTE Family history of VTE Factor V Leiden Prothrombin [id number] Lupus anticoagulant Anticardiolipin antibodies Elevated serum homocysteine Heparin-induced thrombocytopenia Other congenital or acquired thrombophilia Stroke (< 1 month) Elective arthroplasty Hip, pelvis, or leg fracture Acute spinal cord injury (< 1 month) Prophylaxis Regimen: Total Risk Factor Score Risk Level Prophylaxis Regimen 0-1 Low Early ambulation 2 Moderate Order ONE of the following: *Sequential Compression Device (SCD) *Heparin 5000 units SQ BID 3-4 Higher Order ONE of the following medications: *Heparin 5000 units SQ TID *Enoxaparin/Lovenox 40 mg SQ daily (WT < 150 kg, CrCl > 30 mL/min) *Enoxaparin/Lovenox 30 mg SQ daily (WT < 150 kg, CrCl > 10-29 mL/min) *Enoxaparin/Lovenox 30 mg SQ BID (WT < 150 kg, CrCl > 30 mL/min) AND/OR *Sequential Compression Device (SCD) 5 or more Highest Order ONE of the following medications: *Heparin 5000 units SQ TID (Preferred with Epidurals) *Enoxaparin/Lovenox 40 mg SQ daily (WT < 150 kg, CrCl > 30 mL/min) *Enoxaparin/Lovenox 30 mg SQ daily (WT < 150 kg, CrCl > 10-29 mL/min) *Enoxaparin/Lovenox 30 mg SQ BID (WT < 150 kg, CrCl > 30 mL/min) AND *Sequential Compression Device (SCD) Assessment and Plan - Assessment (1) Sepsis Code(s): A41.9 - Sepsis, unspecified organism Status: Acute (2) PNA (pneumonia) Code(s): J18.9 - Pneumonia, unspecified organism Status: Acute (3) DM (diabetes mellitus) Code(s): E11.9 - Type 2 diabetes mellitus without complications Status: Acute - Plan A/P: 1. Sepsis: Temp 100.4, HR 120, Source-PNA. S/p Blood Cultures, IV Zosyn in ER , recent admit for same, source unknown at that time w/ negative work up. Blood Cultures from last admit reviewed and found to be negative. Follow up cultures from today, continue IV Abx w/ Vanc/Cefepime. Consult ID if needed for recommendations on antibiotic regimen in light of persistent fever. 2. PNA: CT Chest w/ likely new infiltrate, images reviewed by me. Continue IV Abx, DuoNeb prn, monitor O2. 3. DM: Sliding scale w/ Accu-Cheks. Hold Metformin for now in light of sepsis 4. DVT Prophylaxis: SCD/Teds 5. Social work for d/c planning as needed 6. Case discussed w/ ER physician at length, labs/records/imaging reviewed by me.
[2018-05-27] MEDS ORDERED: Vancomycin Consult Pharmacy 1 EACH OTHER SCH (23:00)
[2018-05-28] MEDS: Sod Chloride 0.9% Inj 1,000 ML IV.CONT SCH ×3 (00:38→18:10)
[2018-05-28] MEDS: Amitriptyline 10 MG Tablet PO SCH ×2 (01:45→23:27)
[2018-05-28 07:53] LABS: Baso % (Auto) 0.2 % (0.0-2.0); Eos # (Auto) 0.2 th/mm3 (0.0-0.4); Eos % (Auto) 1.4 % (0.0-4.0); Hematocrit 36.7 % (39.0-51.0); Hemoglobin 11.9 gm/dL (13.0-17.0); Lymph # (Auto) 1.6 th/mm3 (1.0-4.8); Lymph % (Auto) 9.5 % (9.0-44.0); Mean Corpuscular HGB Conc 32.5 % (32.0-36.0); Mean Corpuscular Hemoglobin 31.4 pg (27.0-34.0); Mean Corpuscular Volume 96.6 fL (80.0-100.0); Mono # (Auto) 0.8 th/mm3 (0.0-0.9); Mono % (Auto) 5.2 % (0.0-8.0); Neut # (Auto) 13.7 th/mm3 (1.8-7.7); Neut % (Auto) 83.7 % (16.0-70.0); Platelet Count 171 th/mm3 (150-450); Red Blood Count 3.79 mil/mm3 (4.50-5.90); White Blood Count 16.3 th/mm3 (4.0-11.0)
[2018-05-28 08:14] LABS: Alanine Aminotransferase 37 U/L (12-78); Alkaline Phosphatase 63 U/L (45-117); Anion Gap 9 meq/L (5-15); Aspartate Aminotransferase 24 U/L (15-37); Blood Urea Nitrogen 20 mg/dL (7-18); Calcium 8.1 mg/dL (8.5-10.1); Carbon Dioxide 24.1 meq/L (21.0-32.0); Chloride 109 meq/L (98-107); Glomerular Filtration Rate 89 mL/min (>89); Glucose,Random 210 mg/dL (74-106); Potassium 4.2 meq/L (3.5-5.1); Sodium 142 meq/L (136-145); Total Protein 6.2 g/dL (6.4-8.2)
[2018-05-28 08:52] LABS: Eosinophils 3 % (0-4); Lymphocytes 4 % (9-44); Monocytes 5 % (0-8)
[2018-05-28 08:53] LABS: Platelet Estimate Normal (Normal); Platelet Morphology Normal (Normal)
[2018-05-28] MEDS: Gabapentin 300 MG Capsule PO SCH ×3 (08:59→18:10)
[2018-05-28] MEDS: Pantoprazole Sodium 20 MG DR Tablet PO SCH (08:59)
[2018-05-28] MEDS: Lisinopril 5 MG Tablet PO SCH (08:59)
[2018-05-28] MEDS: Magnesium Oxide 400 MG Tablet PO SCH (08:59)
[2018-05-28] MEDS: Finasteride 5 MG Tablet PO SCH (08:59)
[2018-05-28] MEDS: Senna/Docusate Sodium 8.6/50 MG Tablet PO SCH ×2 (09:00→21:06)
[2018-05-28] MEDS: Vancomycin Inj 1,500 MG in Sodium Chlor 0.9% Inj 500 ML IV.SIG SCH (10:05)
--- NOTE | 2018-05-28 17:54 | P.PNIM ---
Subjective Interval history: Patient reports that shortness of breath is improving. Denies any chest pain. Physical Exam Vital signs: Vital Signs 05/27/18 18:18 05/27/18 20:24 05/28/18 00:00 Temperature 98 F Pulse Rate 102 H 84 Respiratory Rate 16 20 Blood Pressure 110/58 L 105/57 L Pulse Oximetry 91 L 94 L 95 05/28/18 04:00 05/28/18 07:20 05/28/18 07:41 Temperature 97.9 F 97.8 F Pulse Rate 81 69 Respiratory Rate 20 20 Blood Pressure 116/72 111/63 Pulse Oximetry 96 97 97 05/28/18 10:10 05/28/18 11:58 05/28/18 16:00 Temperature 98.2 F 98.2 F Pulse Rate 78 74 75 Respiratory Rate 16 16 Blood Pressure 105/51 L 123/65 Pulse Oximetry 94 L 94 L Intake & Output 05/27/18 05/28/18 05/28/18 18:59 06:59 18:59 Intake Total 1530 / 1530 1615 / 1615 Balance 1530 / 1530 1615 / 1615 Weight 89.811 kg 90.4 kg Intake: IV 1050 / 1050 1615 / 1615 NS Inj 1,000 ML @ 100 mls/hr IV 1000 / 1000 .CONT .Q10H [facility] Rx#:[id number] Maxipime Inj 1,000 MG In NS Inj 100 / 100 100 ML @ 200 mls/hr IV.SIG Q12H [facility] Rx#:[id number] Zosyn 3.375 GM Premix 50 ML @ 50 / 50 100 mls/hr IV.SIG ONCE ONE Rx#: [id number] NS Inj 1,000 ML @ Wide Open IV. 1000 / 1000 [facility] Rx#:[id number] Vancomycin Inj 1,500 MG In NS 515 / 515 Inj 500 ML @ 250 mls/hr IV.SIG Q18H [facility] Rx#:[id number] Oral 480 / 480 Other: # Voids 1 3 Weight On Admission 89.811 kg Narrative: GENERAL: Patient sitting up in bed. Appears comfortable. SKIN: Warm and dry. HEAD: Normocephalic. EYES: No scleral icterus. No injection or drainage. NECK: Supple, trachea midline. No JVD or lymphadenopathy. CARDIOVASCULAR: Regular rate and rhythm without murmurs, gallops, or rubs. RESPIRATORY: Breath sounds with rhonchi in the right lung. No rales. GASTROINTESTINAL: Abdomen soft, non-tender, nondistended. MUSCULOSKELETAL: No cyanosis, or edema. BACK: Nontender without obvious deformity. No CVA tenderness. Results - Labs CBC & Chem 7: 05/28/18 05:50 05/28/18 05:50 Laboratory Results - last 24 hr 05/27/18 05/27/18 05/27/18 17:45 17:45 17:45 WBC 10.5 RBC 4.28 L Hgb 13.8 Hct 40.5 MCV 94.6 MCH 32.2 MCHC 34.1 RDW 13.6 Plt Count 176 MPV 9.2 Prelim Diff (Auto) Neut % (Auto) 86.0 H Lymph % (Auto) 8.9 L [place] % (Auto) 3.8 Eos % (Auto) 1.1 Baso % (Auto) 0.2 Neut # (Auto) 9.0 H Lymph # (Auto) 0.9 L [place] # (Auto) 0.4 Eos # (Auto) 0.1 Baso # (Auto) 0.0 WBC Differential . Seg Neuts % (Manual) Band Neuts % (Manual) Lymphocytes % (Manual) Monocytes % (Manual) Eosinophils % (Manual) Abs Neuts (Manual) Differential Comment Auto diff final Platelet Estimate Platelet Morphology PT 9.8 INR 1.0 APTT 24.5 Puncture Site Patient Temperature O2 Saturation ABG pH ABG pCO2 ABG pO2 ABG HCO3 ABG O2 Content ABG Base Excess ABG Methemoglobin Thomas Test Hemoglobin Carboxyhemoglobin O2 Delivery Device Liter Flow Inspired O2 Critical Value Sodium 143 Potassium 4.0 Chloride 107 Carbon Dioxide 22.9 Anion Gap 13 BUN 20 H Creatinine 1.00 Estimated GFR 73 L POC Glucose Random Glucose 172 H Lactic Acid Calcium 9.3 Total Bilirubin 0.7 AST 34 ALT 47 Alkaline Phosphatase 78 Total Protein 6.9 D Albumin 3.5 Urine Color Urine Clarity Urine pH Ur Specific [place] Urine Protein Urine Glucose (UA) Urine Ketones Urine Occult Blood Urine Nitrate Urine Bilirubin Urine Urobilinogen Ur Leukocyte Esterase Urine WBC Ur Squamous Epith Cells Micro UA Comment Urine Culture Comments 05/27/18 05/27/18 05/27/18 20:50 20:50 21:00 WBC RBC Hgb Hct MCV MCH MCHC RDW Plt Count MPV Prelim Diff (Auto) Neut % (Auto) Lymph % (Auto) [place] % (Auto) Eos % (Auto) Baso % (Auto) Neut # (Auto) Lymph # (Auto) [place] # (Auto) Eos # (Auto) Baso # (Auto) WBC Differential Seg Neuts % (Manual) Band Neuts % (Manual) Lymphocytes % (Manual) Monocytes % (Manual) Eosinophils % (Manual) Abs Neuts (Manual) Differential Comment Platelet Estimate Platelet Morphology PT INR APTT Puncture Site Right radial Patient Temperature 98.6 O2 Saturation 92 ABG pH 7.45 H ABG pCO2 33 L ABG pO2 77 ABG HCO3 22 ABG O2 Content 16.1 ABG Base Excess -1.2 ABG Methemoglobin 2.0 Thomas Test Present Hemoglobin 12.4 Carboxyhemoglobin 0.6 O2 Delivery Device Nasal cannula Liter Flow 2.00 Inspired O2 21 Critical Value No Sodium Potassium Chloride Carbon Dioxide Anion Gap BUN Creatinine Estimated GFR POC Glucose Random Glucose Lactic Acid 2.9 H Calcium Total Bilirubin AST ALT Alkaline Phosphatase Total Protein Albumin Urine Color Yellow Urine Clarity Clear Urine pH 5.0 Ur Specific [place] 1.011 Urine Protein Negative Urine Glucose (UA) Negative Urine Ketones Negative Urine Occult Blood Negative Urine Nitrate Negative Urine Bilirubin Negative Urine Urobilinogen Less than 2 Ur Leukocyte Esterase Negative Urine WBC 1 Ur Squamous Epith Cells <1 Micro UA Comment Culture not ind Urine Culture Comments Culture not ind 05/27/18 05/28/18 05/28/18 23:53 05:50 05:50 WBC 16.3 H D RBC 3.79 L Hgb 11.9 L Hct 36.7 L MCV 96.6 MCH 31.4 MCHC 32.5 RDW 14.0 Plt Count 171 MPV 10.0 Prelim Diff (Auto) Slide review pending Neut % (Auto) 83.7 H Lymph % (Auto) 9.5 [place] % (Auto) 5.2 Eos % (Auto) 1.4 Baso % (Auto) 0.2 Neut # (Auto) 13.7 H Lymph # (Auto) 1.6 [place] # (Auto) 0.8 Eos # (Auto) 0.2 Baso # (Auto) 0.0 WBC Differential Manual diff final Seg Neuts % (Manual) 76 H Band Neuts % (Manual) 12 H Lymphocytes % (Manual) 4 L Monocytes % (Manual) 5 Eosinophils % (Manual) 3 Abs Neuts (Manual) 14.3 H Differential Comment . Platelet Estimate Normal Platelet Morphology Normal PT INR APTT Puncture Site Patient Temperature O2 Saturation ABG pH ABG pCO2 ABG pO2 ABG HCO3 ABG O2 Content ABG Base Excess ABG Methemoglobin Thomas Test Hemoglobin Carboxyhemoglobin O2 Delivery Device Liter Flow Inspired O2 Critical Value Sodium 142 Potassium 4.2 Chloride 109 H Carbon Dioxide 24.1 Anion Gap 9 BUN 20 H Creatinine 0.84 Estimated GFR 89 POC Glucose Random Glucose 210 H Lactic Acid 3.1 H Calcium 8.1 L D Total Bilirubin 1.2 H AST 24 ALT 37 Alkaline Phosphatase 63 Total Protein 6.2 L D Albumin 3.0 L Urine Color Urine Clarity Urine pH Ur Specific [place] Urine Protein Urine Glucose (UA) Urine Ketones Urine Occult Blood Urine Nitrate Urine Bilirubin Urine Urobilinogen Ur Leukocyte Esterase Urine WBC Ur Squamous Epith Cells Micro UA Comment Urine Culture Comments 05/28/18 09:08 WBC RBC Hgb Hct MCV MCH MCHC RDW Plt Count MPV Prelim Diff (Auto) Neut % (Auto) Lymph % (Auto) [place] % (Auto) Eos % (Auto) Baso % (Auto) Neut # (Auto) Lymph # (Auto) [place] # (Auto) Eos # (Auto) Baso # (Auto) WBC Differential Seg Neuts % (Manual) Band Neuts % (Manual) Lymphocytes % (Manual) Monocytes % (Manual) Eosinophils % (Manual) Abs Neuts (Manual) Differential Comment Platelet Estimate Platelet Morphology PT INR APTT Puncture Site Patient Temperature O2 Saturation ABG pH ABG pCO2 ABG pO2 ABG HCO3 ABG O2 Content ABG Base Excess ABG Methemoglobin Thomas Test Hemoglobin Carboxyhemoglobin O2 Delivery Device Liter Flow Inspired O2 Critical Value Sodium Potassium Chloride Carbon Dioxide Anion Gap BUN Creatinine Estimated GFR POC Glucose 292 H Random Glucose Lactic Acid Calcium Total Bilirubin AST ALT Alkaline Phosphatase Total Protein Albumin Urine Color Urine Clarity Urine pH Ur Specific [place] Urine Protein Urine Glucose (UA) Urine Ketones Urine Occult Blood Urine Nitrate Urine Bilirubin Urine Urobilinogen Ur Leukocyte Esterase Urine WBC Ur Squamous Epith Cells Micro UA Comment Urine Culture Comments Microbiology 05/27/18 20:50 Urine - Clean Catch Urine Streptococcus pneumoniae Antigen ( M - Final Presumptive negative for streptococcus pneumoniae antigen, suggesting no current or recent infection. Infection due to Streptococcus pneumoniae cannot be ruled out since the antigen present in the sample may be below the detection limit of the test. 05/27/18 20:50 Urine - Clean Catch Urine Legionella Antigen - Final Presumptive negative for Legionella pneumophila serogroup 1 antigen in urine, suggesting no recent or recurrent infection. Infection due to Legionella cannot be ruled out since other serogroups and species may cause disease, antigen may not be present in urine in early infection, and the level of antigen present in the urine may be below the detection limit of the test. 05/27/18 17:45 Blood - Peripheral Aerobic Blood Culture - Preliminary No growth in 1 day 05/27/18 17:45 Blood - Peripheral Anaerobic Blood Culture - Preliminary No growth in 1 day 05/27/18 18:00 Blood - Peripheral Aerobic Blood Culture - Preliminary No growth in 1 day 05/27/18 18:00 Blood - Peripheral Anaerobic Blood Culture - Preliminary No growth in 1 day 05/27/18 18:00 Nasal Wash Influenza Types A,B Antigen - Final Negative for FLU A and B antigen Infection due to influenza A or B cannot be ruled out since the antigen present in the sample may be below the detection limit of the test. - Imaging Impressions Chest CT 05/27/18 17:43 CONCLUSION: 1. No pulmonary or mediastinal masses seen. 2. A few small areas of nonconsolidative opacity in the right lung may represent developing infiltrate. Recommend follow-up exam to assure resolution. Pulmonary Perfusion Imaging 05/27/18 17:43 CONCLUSION: 1. Low probability pulmonary embolism. Assessment and Plan - Assessment (1) Sepsis Code(s): A41.9 - Sepsis, unspecified organism Status: Acute (2) PNA (pneumonia) Code(s): J18.9 - Pneumonia, unspecified organism Status: Acute (3) DM (diabetes mellitus) Code(s): E11.9 - Type 2 diabetes mellitus without complications Status: Acute - Plan // Sepsis: Temp 100.4, HR 120, Source-PNA. S/p Blood Cultures, IV Zosyn in ER , recent admit for same, source unknown at that time w/ negative work up. Blood Cultures from last admit reviewed and found to be negative. Follow up cultures from today, continue IV Abx w/ Vanc/Cefepime. Consult ID if needed for recommendations on antibiotic regimen in light of persistent fever. = Failure of levofloxacin as outpatient. Still with some rhonchi in the right lung. Continue to monitor cultures. Will add incentive spirometry and Acapella. Continue broad-spectrum antibiotics. //PNA: CT Chest w/ likely new infiltrate, images reviewed by me. Continue IV Abx, DuoNeb prn, monitor O2. //DM: Sliding scale w/ Accu-Cheks. Hold Metformin for now in light of sepsis //DVT Prophylaxis: SCD/Teds Discharge Planning: Follow-up cultures. Hopefully discharge in the next 1-2 days if improved.
[2018-05-28] MEDS ORDERED: Dextrose 50% in Water 50 ML Vial IV.PUSH PRN (22:31)
[2018-05-29] MEDS: Vancomycin Inj 1,500 MG in Sodium Chlor 0.9% Inj 500 ML IV.SIG SCH ×2 (03:25→21:15)
[2018-05-29] MEDS: Sod Chloride 0.9% Inj 1,000 ML IV.CONT SCH ×2 (08:56→14:27)
[2018-05-29] MEDS: Insulin NovoLOG Aspart Correctional Sugar Inj SQ SCH ×4 (08:57→21:20)
[2018-05-29] MEDS: Magnesium Oxide 400 MG Tablet PO SCH (08:58)
[2018-05-29] MEDS: Finasteride 5 MG Tablet PO SCH (08:58)
[2018-05-29] MEDS: Gabapentin 300 MG Capsule PO SCH ×3 (08:58→17:02)
[2018-05-29] MEDS: Pantoprazole Sodium 20 MG DR Tablet PO SCH (08:59)
[2018-05-29] MEDS: Senna/Docusate Sodium 8.6/50 MG Tablet PO SCH ×2 (09:00→21:14)
[2018-05-29] MEDS: Lisinopril 5 MG Tablet PO SCH (09:00)
[2018-05-29 11:21] LABS: Hematocrit 37.6 % (39.0-51.0); Hemoglobin 12.7 gm/dL (13.0-17.0); Mean Corpuscular HGB Conc 33.9 % (32.0-36.0); Mean Corpuscular Hemoglobin 32.2 pg (27.0-34.0); Mean Corpuscular Volume 95.1 fL (80.0-100.0); Mean Platelet Volume 9.4 fL (7.0-11.0); Platelet Count 179 th/mm3 (150-450); Red Blood Count 3.95 mil/mm3 (4.50-5.90); Red Cell Distribution Width 13.8 % (11.6-17.2); White Blood Count 8.4 th/mm3 (4.0-11.0)
[2018-05-29 11:30] LABS: Calcium 8.5 mg/dL (8.5-10.1); Carbon Dioxide 22.9 meq/L (21.0-32.0); Potassium 3.9 meq/L (3.5-5.1)
--- NOTE | 2018-05-29 14:23 | P.PNIM ---
Subjective Interval history: Patient reports he is feeling better. Breathing more comfortably. Coughing less. Physical Exam Vital signs: Vital Signs 05/28/18 16:00 05/28/18 18:08 05/28/18 19:46 Temperature 98.2 F 98.3 F Pulse Rate 75 93 H 76 Respiratory Rate 16 18 Blood Pressure 123/65 110/63 Pulse Oximetry 94 L 93 L 05/28/18 20:00 05/28/18 23:48 05/29/18 00:00 Temperature 97.9 F 97.5 F L Pulse Rate 79 76 72 Respiratory Rate 18 18 Blood Pressure 127/61 125/67 Pulse Oximetry 91 L 93 L 05/29/18 08:00 05/29/18 12:00 Temperature 97.7 F 97.4 F L Pulse Rate 68 68 Respiratory Rate 18 18 Blood Pressure 150/74 H 122/72 Pulse Oximetry 94 L 97 Intake & Output 05/28/18 05/29/18 05/29/18 18:59 06:59 18:59 Intake Total 2615 / 2615 1340 / 1340 600 / 600 Balance 2615 / 2615 1340 / 1340 600 / 600 Weight 90 kg Intake: IV 2615 / 2615 1100 / 1100 600 / 600 NS Inj 1,000 ML @ 100 mls/hr IV 2000 / 2000 1000 / 1000 .CONT .Q10H [facility] Rx#:[id number] Maxipime Inj 1,000 MG In NS Inj 100 / 100 100 / 100 100 / 100 100 ML @ 200 mls/hr IV.SIG Q12H [facility] Rx#:[id number] Vancomycin Inj 1,500 MG In NS 515 / 515 500 / 500 Inj 500 ML @ 250 mls/hr IV.SIG Q18H [facility] Rx#:[id number] Oral 240 / 240 Other: # Voids 3 3 Date of Last Bowel Movement 05/26/18 Narrative: GENERAL: Patient sitting up in a chair. No acute distress. CARDIOVASCULAR: Regular rate and rhythm without murmurs, gallops, or rubs. RESPIRATORY: Breath sounds with rhonchi in the right lung. No rales. GASTROINTESTINAL: Abdomen soft, non-tender, nondistended. MUSCULOSKELETAL: No cyanosis, or edema. BACK: Nontender without obvious deformity. No CVA tenderness. Results - Labs CBC & Chem 7: 05/29/18 10:11 05/29/18 10:11 Laboratory Results - last 24 hr 05/28/18 05/29/18 05/29/18 21:08 07:22 10:11 WBC 8.4 RBC 3.95 L Hgb 12.7 L Hct 37.6 L MCV 95.1 MCH 32.2 MCHC 33.9 RDW 13.8 Plt Count 179 MPV 9.4 Sodium Potassium Chloride Carbon Dioxide Anion Gap BUN Creatinine Estimated GFR POC Glucose 262 H 211 H Random Glucose Calcium 05/29/18 05/29/18 10:11 11:19 WBC RBC Hgb Hct MCV MCH MCHC RDW Plt Count MPV Sodium 142 Potassium 3.9 Chloride 112 H Carbon Dioxide 22.9 Anion Gap 7 BUN 16 Creatinine 0.86 Estimated GFR 86 L POC Glucose 299 H Random Glucose 307 H Calcium 8.5 Microbiology 05/27/18 17:45 Blood - Peripheral Aerobic Blood Culture - Preliminary No growth in 2 days 05/27/18 17:45 Blood - Peripheral Anaerobic Blood Culture - Preliminary No growth in 2 days 05/27/18 18:00 Blood - Peripheral Aerobic Blood Culture - Preliminary No growth in 2 days 05/27/18 18:00 Blood - Peripheral Anaerobic Blood Culture - Preliminary No growth in 2 days 05/27/18 20:50 Urine - Clean Catch Urine Streptococcus pneumoniae Antigen ( M - Final Presumptive negative for streptococcus pneumoniae antigen, suggesting no current or recent infection. Infection due to Streptococcus pneumoniae cannot be ruled out since the antigen present in the sample may be below the detection limit of the test. 05/27/18 20:50 Urine - Clean Catch Urine Legionella Antigen - Final Presumptive negative for Legionella pneumophila serogroup 1 antigen in urine, suggesting no recent or recurrent infection. Infection due to Legionella cannot be ruled out since other serogroups and species may cause disease, antigen may not be present in urine in early infection, and the level of antigen present in the urine may be below the detection limit of the test. Assessment and Plan - Assessment (1) Sepsis Code(s): A41.9 - Sepsis, unspecified organism Status: Acute (2) PNA (pneumonia) Code(s): J18.9 - Pneumonia, unspecified organism Status: Acute (3) DM (diabetes mellitus) Code(s): E11.9 - Type 2 diabetes mellitus without complications Status: Acute - Plan 78-year-old male with: Sepsis: On admission, Temp 100.4, HR 120, Source-PNA. S/p Blood Cultures, IV Zosyn in ER, recent admit for same. continue IV Abx w/ Vanc/Cefepime. Failure of levofloxacin as outpatient. Still with some rhonchi in the right lung. Continue broad-spectrum antibiotics for another 24 hours. -We will plan to discharge on cefuroxime for a few more days. PNA: CT Chest w/ likely new infiltrate, images reviewed by me. Continue IV Abx , DuoNeb prn, monitor O2. -Discussed with patient and his at bedside a follow-up chest CT is recommended in a few weeks. DM: Sliding scale w/ Accu-Cheks. Hold Metformin DVT Prophylaxis: SCD/Teds Discharge Planning: Anticipate discharge tomorrow morning if he continues to improve.
[2018-05-29] MEDS: Amitriptyline 10 MG Tablet PO SCH (21:14)
[2018-05-30 04:31] VITALS: O2SAT 94
[2018-05-30 05:16] LABS: Hematocrit 36.2 % (39.0-51.0); Hemoglobin 12.1 gm/dL (13.0-17.0); Mean Corpuscular HGB Conc 33.4 % (32.0-36.0); Mean Corpuscular Hemoglobin 31.6 pg (27.0-34.0); Mean Corpuscular Volume 94.8 fL (80.0-100.0); Mean Platelet Volume 9.3 fL (7.0-11.0); Platelet Count 174 th/mm3 (150-450); Red Blood Count 3.82 mil/mm3 (4.50-5.90); Red Cell Distribution Width 13.6 % (11.6-17.2); White Blood Count 6.2 th/mm3 (4.0-11.0)
[2018-05-30 05:43] LABS: Anion Gap 9 meq/L (5-15); Blood Urea Nitrogen 14 mg/dL (7-18); Calcium 8.7 mg/dL (8.5-10.1); Carbon Dioxide 22.7 meq/L (21.0-32.0); Chloride 112 meq/L (98-107); Glomerular Filtration Rate Greater Than 89 mL/min (>89); Glucose,Random 202 mg/dL (74-106); Potassium 3.9 meq/L (3.5-5.1); Sodium 144 meq/L (136-145)
[2018-05-30] MEDS: Gabapentin 300 MG Capsule PO SCH (08:15)
[2018-05-30] MEDS: Lisinopril 5 MG Tablet PO SCH (08:16)
[2018-05-30] MEDS: Finasteride 5 MG Tablet PO SCH (08:16)
[2018-05-30] MEDS: Senna/Docusate Sodium 8.6/50 MG Tablet PO SCH (08:16)
[2018-05-30] MEDS: Magnesium Oxide 400 MG Tablet PO SCH (08:16)
[2018-05-30] MEDS: Insulin NovoLOG Aspart Correctional Sugar Inj SQ SCH (08:17)
[2018-05-30] MEDS: Pantoprazole Sodium 20 MG DR Tablet PO SCH (08:19)
[2018-05-30 08:41] VITALS: BP 167/75; PULSE 66; RESP 18; TEMP 97.8
--- NOTE | 2018-05-30 10:18 | P.DS ---
Date of admission: 05/27/18 22:26 Primary care physician: Augustine Barrios Brief History from admission: HPI from the admitting physician: This is a 78-year-old male with PMH of HTN, DM, Bladder CA and Peripheral Neuropathy who presented to the ER with fever. Recent admit 05/20-05/22/18 for similar complaints, work up negative at that time, Blood Cultures negative, U/a negative, s/p Vanc/Cefepime for SIRS and was d/c'd on Levaquin, compliant w/ meds. Returns now w/ ongoing fever. Denies abdominal pain, nausea, vomiting, diarrhea, cough or SOB. No sick contacts. On arrival, BP 129/73, HR 120, O2 sat 91% on RA, Temp 100.4. WBC normal. INR 1.0. BUN 20. Lactic Acid 2.9. UA negative. CT Chest with few small areas of non-consolidative opacity, likely developing infiltrate. V/Q Scan low probability for PE. S/p Zosyn in ER. DS: Diagnosis - Discharge Diagnosis (1) Sepsis Status: Acute (2) PNA (pneumonia) Status: Acute (3) DM (diabetes mellitus) Status: Acute DS: Medications - Discharge Medications Prescriptions: cefuroxime axetil 500 mg PO Q12H #10 tab DS: Summary Hospital Course: 78-year-old male admitted and treated for the following: Sepsis: On admission, Temp 100.4, HR 120, Source-PNA. S/p Blood Cultures, IV Zosyn in ER, recent admit for same. Patient was treated with broad-spectrum IV Abx w/ Vanc/Cefepime. His symptoms significantly improved. It was determined the patient has reached maximal benefit from this hospitalization, he is discharged on cefuroxime. PNA: CT Chest w/ likely new infiltrate, images reviewed by me. Patient treated with IV antibiotics as above. -Discussed with patient and his at bedside a follow-up chest CT is recommended in a few weeks. They will follow-up with PCP. DM: Sliding scale w/ Accu-Cheks. Resume metformin on discharge. - Time Spent with Patient Total time spent providing and/or coordinating discharge services: Less than 30 minutes - Quality: VTE Deep Vein Thrombosis/Pulmonary Embolism Present on Admission: No Exam Vital signs: Vital Signs 05/29/18 12:00 05/29/18 16:00 05/29/18 20:24 Temperature 97.4 F L 98.0 F 97.4 F L Pulse Rate 68 68 66 Respiratory Rate 18 19 18 Blood Pressure 122/72 133/80 168/85 H Pulse Oximetry 97 92 L 95 05/30/18 00:12 05/30/18 04:31 05/30/18 08:00 Temperature 97.8 F 97.6 F 97.8 F Pulse Rate 66 64 66 Respiratory Rate 20 20 18 Blood Pressure 147/73 H 150/75 H 167/75 H Pulse Oximetry 93 L 94 L 94 L Intake & Output 05/29/18 05/30/18 05/30/18 18:59 06:59 18:59 Intake Total 2200 / 2200 795 / 795 Output Total 4 / 4 Balance 2196 / 2196 795 / 795 Intake: IV 1600 / 1600 115 / 115 NS Inj 1,000 ML @ 100 mls/hr IV 1000 / 1000 .CONT .Q10H [facility] Rx#:[id number] Maxipime Inj 1,000 MG In NS Inj 100 / 100 100 / 100 100 ML @ 200 mls/hr IV.SIG Q12H [facility] Rx#:[id number] Vancomycin Inj 1,500 MG In NS 500 / 500 15 / 15 Inj 500 ML @ 250 mls/hr IV.SIG Q18H [facility] Rx#:[id number] Oral 600 / 600 680 / 680 Output: Urine 4 / Other: # Voids 3 Date of Last Bowel Movement 05/26/18 05/26/18 Narrative: GENERAL: This is a well-nourished, well-developed patient, in no apparent distress. CARDIOVASCULAR: Normal rate and regular rhythm without murmurs, gallops, or rubs. RESPIRATORY: Good respiratory efforts. Breath sounds equal and clear to auscultation bilaterally. GASTROINTESTINAL: Abdomen soft, non-tender, non-distended. Normal active bowel sounds MUSCULOSKELETAL: Extremities without cyanosis, or edema. NEURO: Alert & Oriented x4 to person, place, time, situation. Moves all ext x4 PSYCH: Appropriate mood and affect. Results Procedures completed during hospitalization: None Labs on day of discharge: Labs from last 24 hours 05/30/18 05/30/18 05/30/18 07:26 04:11 04:11 WBC 6.2 RBC 3.82 L Hgb 12.1 L Hct 36.2 L MCV 94.8 MCH 31.6 MCHC 33.4 RDW 13.6 Plt Count 174 MPV 9.3 Sodium 144 Potassium 3.9 Chloride 112 H Carbon Dioxide 22.7 Anion Gap 9 BUN 14 Creatinine 0.74 Estimated GFR Greater than 89 POC Glucose 205 H Random Glucose 202 H D Calcium 8.7 05/29/18 05/29/18 05/29/18 21:19 15:53 11:19 WBC RBC Hgb Hct MCV MCH MCHC RDW Plt Count MPV Sodium Potassium Chloride Carbon Dioxide Anion Gap BUN Creatinine Estimated GFR POC Glucose 245 H 214 H 299 H Random Glucose Calcium 05/29/18 05/29/18 10:11 10:11 WBC 8.4 RBC 3.95 L Hgb 12.7 L Hct 37.6 L MCV 95.1 MCH 32.2 MCHC 33.9 RDW 13.8 Plt Count 179 MPV 9.4 Sodium 142 Potassium 3.9 Chloride 112 H Carbon Dioxide 22.9 Anion Gap 7 BUN 16 Creatinine 0.86 Estimated GFR 86 L POC Glucose Random Glucose 307 H Calcium 8.5 Preliminary micro results at discharge 05/27/18 17:45 Aerobic Blood Culture - Preliminary Blood - Peripheral No growth in 2 days Anaerobic Blood Culture - Preliminary No growth in 2 days 05/27/18 18:00 Aerobic Blood Culture - Preliminary Blood - Peripheral No growth in 2 days Anaerobic Blood Culture - Preliminary No growth in 2 days - Impressions ITS Impressions Chest CT 05/27/18 17:43 CONCLUSION: 1. No pulmonary or mediastinal masses seen. 2. A few small areas of nonconsolidative opacity in the right lung may represent developing infiltrate. Recommend follow-up exam to assure resolution. Pulmonary Perfusion Imaging 05/27/18 17:43 CONCLUSION: 1. Low probability pulmonary embolism. Discharge Plan - Discharge Disposition Patient Disposition: Discharge Home - Discharge Condition Condition: Stable - Discharge Order Discharge Orders: Discharge Order (Routine); Ordered 05/30/18 Ordered By: Lala Rubio - Physicians Team Attending Provider: Lala Rubio
[2018-05-30] MEDS ORDERED: Pharmacy Ordered Lab Info OTHER ONE (15:45)
== END 2018-05-30 10:05 | disposition home or self-care (01) ==
LOC: NEPE 17:07 → NEDA 22:26 → NEPFCDU 05-28 00:02 → N07 05-28 17:31
PROVIDERS: ADMIT Family Medicine; ATTEND Family Medicine
DX: Z79.891 Long term (current) use of opiate analgesic; Z88.8 Allergy status to other drugs, medicaments and biological substances; Z87.891 Personal history of nicotine dependence; Z79.82 Long term (current) use of aspirin; K21.9 Gastro-esophageal reflux disease without esophagitis; Z85.51 Personal history of malignant neoplasm of bladder; Z79.899 Other long term (current) drug therapy; Z79.4 Long term (current) use of insulin; E11.42 Type 2 diabetes mellitus with diabetic polyneuropathy; A41.9 Sepsis, unspecified organism; I10 Essential (primary) hypertension; J18.9 Pneumonia, unspecified organism